=== PATIENT | male | born 1950 | race Caucasian/White ===

== ENCOUNTER 2020-04-10 10:39 | Emergency (ER) | payer OTHER, SELFPAY ==
--- NOTE | ~2020-04-10 | CT_ITS ---
EXAMINATION: CT abdomen pelvis w con DATE: 04/10/2020 12:26 INDICATION: Left-sided abdominal pain TECHNIQUE: Computed tomography (CT) of the abdomen and pelvis was performed with 100 cc Omnipaque 350 intravenous contrast. Automated exposure control and iterative reconstruction technique were employe d. Exam dose: 739.96 mGy-cm total exam DLP. COMPARISON: None. FINDINGS: Calcified right lower lobe pulmonary granulomas. There is discoid atelectasis and/or scarri ng in the lower lung zones. Cardiomegaly. No pericardial or pleural effusion. The gallbladder is present. No bile duct or pancreatic duct dilatation. There are calcified splenic granulomas. No hepatic, splenic, pancreatic, and adrenal space-occupying mass lesion. The spleen measures 12 cm vertical dimension, within upper limits of normal. Approximately 3.4 cm lower pole right renal cyst. 7 mm lower pole left renal cyst. There is a pinpoint nonobstructing mid left renal calculus. There is a 2.6 mm calculus at the left ureterovesical junction with mild left hydroureteronephrosis. Moderate prostate enlargement. Normal caliber of the abdominal aorta. No intraperitoneal or retroperitoneal or pelvic mass lesion or adenopathy or ascites. Bilateral small fat-containing inguinal hernias. Normal appendix. Diverticulosis of the colon, with greatest involvement of the sigmoid area. No CT ev idence of diverticulitis. No bowel obstruction, bowel wall thickening, pneumatosis or intraperitoneal free air. Included skeletal structures are unremarkable. IMPRESSION: 2.6 mm left ureterovesical junction calculus with mild left hydroureteronephrosis Pinpoint nonobstructing mid left renal calculus Bilateral renal cysts Cardiomegaly Diverticulosis of the colon Reviewed, dictated and finalized at [facility]. Reviewed, dictated and finalized at [facility]. IMPRESSION: 2.6 mm left ureterovesical junction calculus with mild left hydrou reteronephrosis Pinpoint nonobstructing mid left renal calculus Bilateral renal cysts Cardiomegaly Diverticulosis of the colon
[2020-04-10 10:40] VITALS: BP 176/79; PULSE 100; RESP 16; TEMP 36.4; O2SAT 98
--- NOTE | 2020-04-10 11:27 | PC.NURSE ---
Report given to SASHA Campuzano; assuming care at this time.
--- NOTE | 2020-04-10 11:28 | ED.ABDPAIN ---
HPI - Abdominal Pain General Chief Complaint: Abdominal Pain Stated Complaint: ABD PAIN XTD Time Seen by Provider: 04/10/20 11:08 Source: patient Mode of arrival: ambulatory Limitations: no limitations History of Present Illness HPI narrative: This is a 69-year-old male that presents the emergency department for left-sided abdominal pain which started this morning. Reports the pain was sharp in nature. Reports the pain has now mostly resolved. Denies fever, nausea, vomiting, diarrhea, hematochezia, dysuria or hematuria. Related Data Home Medications Medication Instructions Recorded Confirmed aspirin 325 mg tablet 325 mg PO DAILY 09/22/19 10/12/19 Allergies Allergy/AdvReac Type Severity Reaction Status Date / Time No Known Allergies Allergy Verified 04/10/20 10:53 Review of Systems Review of Systems: Narrative: CONSTITUTIONAL: Denies fever GASTROINTESTINAL: Reports abdominal pain. Denies nausea, vomiting, or diarrhea. GENITOURINARY: Denies dysuria or hematuria. All systems reviewed & are unremarkable except as noted in HPI and below PMFSH Past Medical History Medical History (Updated 04/10/20 @ 14:15 by oHlli Barnett PA-C) Atrial fibrillation by electrocardiogram Essential hypertension Social History Social History Smoking status: Never smoker Alcohol intake: never Exam Narrative: Exam Narrative: GENERAL: Well-appearing, well-nourished, and in no acute distress. HEAD: Normocephalic, atraumatic. EYES: EOMI. CHEST: Clear to auscultation. No respiratory distress. No wheezes rales or rhonchi HEART: Regular rate and rhythm. No murmur heard. Normal peripheral pulses. ABDOMEN: Soft, nondistended, normal active bowel sounds. Tender to palpation of the left side of the abdomen, without guarding EXTREMITIES: Normal range of motion. No edema. SKIN: Warm, dry, no rash. NEURO: No focal deficits. Alert and oriented x3. PSYCH: Normal mood and affect Course Consultations Consultation #1: Spoke with on-call urologist, Dr. Naidu about patient and work-up. Patient will be given pain medication and Flomax and will follow-up in clinic Date: 04/10/20 Time: 14:14 Vital Signs Vital signs: Vital Signs Temperature 97.6 F 04/10/20 10:40 Pulse Rate 100 04/10/20 10:40 Respiratory Rate 16 04/10/20 10:40 Blood Pressure 176/79 H 04/10/20 10:40 Pulse Oximetry 98 04/10/20 10:40 Temperature 97.6 F 04/10/20 10:40 Pulse Rate 88 04/10/20 12:56 Respiratory Rate 16 04/10/20 12:56 Blood Pressure 132/88 04/10/20 12:56 Pulse Oximetry 98 04/10/20 12:56 MDM - Abdominal Pain MDM Narrative Medical decision making narrative: This is a 69-year-old male that presents the emergency department for left-sided abdominal pain since this morning. He is afebrile and nontoxic-appearing. CBC is without acute findings. Metabolic panel without acute changes. UA without evidence of infection. Red blood cells are present. CT of the abdomen and pelvis shows a 2.6 mm left UVJ stone with mild left hydroureteronephrosis. Patient will be started on Flomax and given pain medication as needed for home. He is to follow-up with urology. Spoke with on-call urologist, Dr. Naidu about patient and work-up. Patient is stable and felt appropriate for further outpatient evaluation Lab Data Attestation: I reviewed the patient's lab results. Result diagrams: 04/10/20 11:29 04/10/20 11:29 Labs: Lab Results 04/10/20 04/10/20 04/10/20 Range/Units 11:29 11:29 11:32 WBC 7.5 (4.5-10.0) K/mm3 RBC 5.09 (4.6-6.20) M/mm3 Hgb 16.0 (14.0-18.0) g/dL Hct 47.2 (42.0-52.0) % MCV 92.7 (80-100) fl MCH 31.4 (26-34) pg MCHC 33.9 (32-36) g/dl RDW 13.0 (11.5-14.5) % Plt Count 195 (150-375) k/mm3 MPV 9.4 (7.4-10.4) fl Immature Gran % (Auto) 0.3 (0-0.5) % Neut % (Auto) 86.5 H (45.5-73.1)
[2020-04-10 11:40] LABS: Basophils Absolute Auto 0.1 K/mm3 (0.0-0.1); Basophils Percent Auto 0.8 % (0.2-1.2); Eosinophils Absolute Auto 0.1 K/mm3 (0-0.3); Eosinophils Percent Auto 0.9 % (0-4.4); Hematocrit 47.2 % (42.0-52.0); Immature Granulocyte Absolute 0.02 K/mm3 (0.00-0.031); Immature Granulocyte Percent A 0.3 % (0-0.5); Lymphocytes Percent Auto 6.7 % (18.3-44.2); Mean Corpuscular HGB Conc 33.9 g/dl (32-36); Mean Corpuscular Hemoglobin 31.4 pg (26-34); Mean Corpuscular Volume 92.7 fl (80-100); Mean Platelet Volume 9.4 fl (7.4-10.4); Monocytes Absolute Auto 0.4 K/mm3 (0.1-0.6); Monocytes Percent Auto 4.8 % (2.6-8.5); Neutrophils Absolute Auto 6.5 K/mm3 (1.3-6.7); Neutrophils Percent Auto 86.5 % (45.5-73.1); Platelet Count Result 195 k/mm3 (150-375); Red Blood Count 5.09 M/mm3 (4.6-6.20); White Blood Count 7.5 K/mm3 (4.5-10.0)
[2020-04-10 11:43] LABS: Add Urine Microscopic? YES; Appearance Urine Clear (Clear); Bacteria Urine Trace /hpf; Bilirubin Urine Negative (Negative); Blood Urine 3+ (Negative); Color Urine Yellow (Yellow); Glucose Urine UA Negative (Negative); Ketones Urine Negative (Negative); Leukocyte Esterase Ur Negative LEU/UL (Negative); Mucus Urine Heavy /lpf; Nitrate Urine Negative (Negative); Protein Urine 1+ mg/dL (Negative); RBC Urine >75 /hpf (0-2); Specific Grav Ur 1.023 (1.001-1.035); Squamous Epithelial Cell Urine Rare /hpf (Few); Urobilinogen Urine Negative mg/dL (<2.0); WBC Urine 0-3 /hpf
[2020-04-10 11:50] LABS: Alanine Aminotransferase 16 U/L (4-50); Albumin Level 4.4 g/dL (3.5-5.1); Alkaline Phosphatase 52 U/L (38-126); Aspartate Amino Transferase 23 U/L (17-59); Bilirubin,Total 0.7 mg/dL (0.2-1.3); Blood Urea Nitrogen 20 mg/dL (9-20); Calcium 9.5 mg/dL (8.4-10.2); Carbon Dioxide 24 mmol/L (22-30); Chloride 109 mmol/L (98-107); Estimated CRCL calculation 52 ml/min; Estimated Glomerular Filt Rate 55; Glucose 117 mg/dL (75-110); Lipase 94 U/L (23-300); Potassium 4.2 mmol/L (3.4-5.0); Sodium 142 mmol/L (137-145)
[2020-04-10 12:07] VITALS: BP 146/81; PULSE 82; RESP 16; O2SAT 98
[2020-04-10 12:56] VITALS: BP 132/88; PULSE 88; RESP 16; O2SAT 98
[2020-04-10 14:39] VITALS: BP 134/76; PULSE 78; RESP 18; O2SAT 98
== END 2020-04-10 14:40 | disposition home or self-care (01) ==
PROVIDERS: Physician Assistant; Emergency Provider Emergency Medicine; PCP Internal Medicine
DX: N13.2 Hydronephrosis with renal and ureteral calculous obstruction (principal); I48.91 Unspecified atrial fibrillation; I10 Essential (primary) hypertension; Z79.82 Long term (current) use of aspirin
CPT/HCPCS: 36415; 74177; 80053; 81001; 83690; 85025; 99284; Q9967

== ENCOUNTER → 2021-02-10 00:57 | Outpatient (CLI) | payer OTHER, SELFPAY ==
[2021-02-10 19:49] LABS: SARS-CoV-2 RNA PCR Negative
== END ==
PROVIDERS: PCP Internal Medicine; Visit Provider Internal Medicine Gastroenterology
DX: Z01.812 Encounter for preprocedural laboratory examination (principal); Z20.822 Contact with and (suspected) exposure to COVID-19
CPT/HCPCS: C9803; U0003; U0005

== ENCOUNTER 2021-02-13 02:08 | Day surgery (SDC) | payer OTHER, SELFPAY ==
[2021-01-30 13:32] VITALS: BMI 29.6
[2021-02-13 10:05] VITALS: BP 149/63; PULSE 100; RESP 20; TEMP 36.2; O2SAT 98
[2021-02-13] MEDS: LACTATED RINGERS 1,000 ML 150 ML IV CONT (10:19)
--- NOTE | 2021-02-13 10:40 | PM.HPGS ---
History of Present Illness History of Present Illness Consent: Risks, benefits, and alternatives have been discussed and questions answered. Patient agrees to proceed with procedure. Chief complaint: Hx Of Colon Polyps Narrative: Hernandez Persaud is a 70 year old male referred for colon cancer screening. He had a polyp removed about 8 years ago Review of Systems Review of Systems: All systems reviewed & are unremarkable except as noted in HPI and below PMFSH Past Medical History Medical History Atrial fibrillation by electrocardiogram Essential hypertension Family History Family History Father Family history of malignant neoplasm Patient's father is Mother Family history of malignant neoplasm Patient's mother is Sibling Family history of malignant neoplasm Patient's brother is Social History Social History Smoking status: Never smoker Alcohol intake: never Living arrangements: alone Gender identity (if verbalized by the patient): Male Spiritual care concerns: No Meds Home Medications and Allergies Home Medications Medication Instructions Recorded Confirmed Type aspirin 325 mg tablet 325 mg PO DAILY 09/22/19 01/30/21 History cholecalciferol (vitamin D3) 50 mcg PO DAILY 01/30/21 01/30/21 History [Vitamin D3] lisinopril 20 mg PO DAILY 01/30/21 01/30/21 History Allergies Allergy/AdvReac Type Severity Reaction Status Date / Time No Known Allergies Allergy Verified 02/13/21 10:04 Vital Signs Vital Signs - 24 hr 02/13/21 10:05 Temperature 36.2 C L Pulse Rate 100 Respiratory Rate 20 Blood Pressure 149/63 H Pulse Oximetry 98 Exam Resp: Auscultation: clear to auscultation bilaterally Cardio: Rate: regular rate Rhythm: regular rhythm GI: GI Palp: Yes Soft to palpation and No Tenderness to palpation present (GI) Assessment and Plan Assessment and plan (1) Colon cancer screening: Code(s): Z12.11 - Encounter for screening for malignant neoplasm of colon Status: Acute Assessment and Plan: Colonoscopy with possible biopsy or polypectomy or cautery or injection of substances.
--- NOTE | 2021-02-13 10:45 | WPDANESEPPF ---
Anes - Initial Pre Proc Eval Procedure: Operation Date: 02/13/21 11:00 Proposed Procedures p Screening Colonoscopy - Josh Mancilla MD Date/Time: 02/13/21 10:45 Surgeon: Josh Mancilla MD Pre Op Diagnosis: Hx Of Colon Polyps Patient Data Age: 70 Gender: M Height: 5 ft 9 in Weight: 90.8 kg Last Vital Signs Temp 97.2 F L 02/13/21 10:05 Pulse 100 02/13/21 10:05 Resp 20 02/13/21 10:05 BP 149/63 H 02/13/21 10:05 Pulse Ox 98 02/13/21 10:05 Allergies Allergy/AdvReac Type Severity Reaction Status Date / Time No Known Allergies Allergy Verified 02/13/21 10:04 Home Medications Medication Instructions Recorded Confirmed Type aspirin 325 mg tablet 325 mg PO DAILY 09/22/19 01/30/21 History cholecalciferol (vitamin D3) 50 mcg PO DAILY 01/30/21 01/30/21 History [Vitamin D3] lisinopril 20 mg PO DAILY 01/30/21 01/30/21 History Patient hx anesthesia problems: none Family hx anesthesia problems: none PMFSH Past Medical History Medical History Atrial fibrillation by electrocardiogram Essential hypertension Family History Family History Father Family history of malignant neoplasm Patient's father is Mother Family history of malignant neoplasm Patient's mother is Sibling Family history of malignant neoplasm Patient's brother is Social History Social History Smoking status: Never smoker Alcohol intake: never Living arrangements: alone Gender identity (if verbalized by the patient): Male Spiritual care concerns: No Anes - Eval Final PreProcedure Day of Procedure 02/13/21 10:45 Patient weight: obese Heart: irregular rhythm Lungs: clear to auscultation Airway: Mallampati scale class II Neurological: alert and oriented Last oral intake: >/= 8 hours ASA classification: III Emergent: no Anesthetic plan: proceed Anesthesia type and monitoring: general GIVS and standard monitoring Informed Consent: The patient's anesthetic plan and its attendant risks and benefits were discussed with the patient/family/POA. Questions were solicited and answers provided to the satisfaction of the patient/family/POA.
[2021-02-13 11:30] VITALS: BP 93/56; PULSE 91; RESP 20; O2SAT 98
[2021-02-13 11:40] VITALS: BP 105/59; PULSE 85; RESP 20; O2SAT 99
[2021-02-13 11:50] VITALS: BP 116/79; PULSE 79; RESP 20; O2SAT 99
== END 2021-02-13 12:03 | disposition home or self-care (01) ==
PROVIDERS: PCP Internal Medicine; Visit Provider Internal Medicine Gastroenterology
PROC: 0DJD8ZZ Inspection of Lower Intestinal Tract, Via Natural or Artificial Opening Endoscopic (ICD-10-PCS; CPT 45378; principal; 2021-02-13 11:00)
DX: Z12.11 Encounter for screening for malignant neoplasm of colon (principal); K63.5 Polyp of colon; K57.30 Diverticulosis of large intestine without perforation or abscess without bleeding; I48.91 Unspecified atrial fibrillation; I10 Essential (primary) hypertension; Z79.82 Long term (current) use of aspirin; E66.9 Obesity, unspecified; Z68.29 Body mass index [BMI] 29.0-29.9, adult
CPT/HCPCS: 45380; 88305; C9803; J2704; J7120; U0003; U0005

== ENCOUNTER 2022-05-11 14:19 | Outpatient (CLI) | payer OTHER, SELFPAY ==
--- NOTE | 2022-05-11 14:32 | ECHO_ITS ---
Patient Info Name: Hernandez Persaud Age: 72 years : 1950 Gender: Male Ht: 67 in Wt: 197 lbs BSA: 2.08 m2 HR: 114 bpm BP: 131 / 88 mmHg Heart Rhythm: Atrial Fibrillation Technical Quality: Good Exam Date: 05/11/2022 3:06 PM Exam Location: [facility] Patient Status: Outpatient Admit Date: 05/11/2022 Staff Ordering Physician: Avila Glover DO Structural Drafter: Jessa Sky RDCS Attending Provider: Avila Glover DO Referring Physician: Adalberto RIZO; Exam Type: CA echo doppler color flow Study Info Indications I51.9 - Heart disease, unspecified Complete two-dimensional, color flow and Doppler transthoracic echocardiogram is performed. Summary 1. Complete two-dimensional, color flow and Doppler transthoracic echocardiogram is performed. 2. Left ventricular chamber dimension is normal. 3. Left ventricular systolic function is normal, estimated at 60-65%. 4. The left ventricular diastolic function is normal. 5. E/e' 9 is minimally elevated. 6. Atrial fibrillation. 7. Left atrial chamber dimension is moderately enlarged. 8. There is mild aortic valve sclerosis. 9. There is mild to moderate aortic valve regurgitation. 10. There is mild mitral valve regurgitation. 11. No pulmonary hypertension, estimated pulmonary arterial systolic pressure is 30 mmHg. Left Ventricle E/e' 9 is minimally elevated. Left ventricular chamber dimension is normal. Left ventricular systolic function is normal, estimated at 60-65%. The left ventricular diastolic function is normal. Atrial fibrillation. Right Ventricle Right ventricular chamber dimension is normal. Right ventricular systolic function is normal. Left Atria Left atrial chamber dimension is moderately enlarged. Right Atria Right atrial chamber dimension is normal. Aortic Valve The aortic valve is trileaflet. There is mild aortic valve sclerosis. There is no aortic valve stenosis. There is mild to moderate aortic valve regurgitation. Pulmonic Valve There is no pulmonic regurgitation. Mitral Valve There is no mitral valve stenosis. There is mild mitral valve regurgitation. Tricuspid Valve There is no tricuspid valve regurgitation. No pulmonary hypertension, estimated pulmonary arterial systolic pressure is 30 mmHg. Pericardium/Pleural There is no pericardial effusion. Inferior Vena Cava Normal inferior vena cava with >50% collapse upon inspiration consistent with normal right atrial pressure, 5 mmHg. Aorta The aortic root size at the sinus of Valsalva is normal. Left Ventricular Outflow Tract Name Value Normal LVOT 2D LVOT Diameter 2.1 cm LVOT Doppler LVOT Peak Gradient 5 mmHg LVOT Mean Gradient 2 mmHg LVOT VTI 19 cm LVOT VTI/AV VTI Ratio 0.9 LVOT Stroke Volume 65 ml LVOT CO 15.6 l/min LVOT CI 7.5 l/min/m2 Pulmonic Valve
== END 2022-05-11 14:20 | disposition home or self-care (01) ==
PROVIDERS: PCP Internal Medicine; Visit Provider Internal Medicine Cardiovascular Disease
DX: I51.9 Heart disease, unspecified (principal); I34.0 Nonrheumatic mitral (valve) insufficiency; I35.1 Nonrheumatic aortic (valve) insufficiency
CPT/HCPCS: 93306

== ENCOUNTER 2023-12-25 17:45 | Emergency (ER) | payer OTHER, SELFPAY ==
--- NOTE | ~2023-12-25 | XR_ITS ---
EXAMINATION: XR shoulder RT min 2V DATE: 12/25/2023 18:11 INDICATION: Right shoulder pain. Fall. TECHNIQUE: 2 views of right shoulder were obtained. COMPARISON: None. FINDINGS: There is a comminuted fracture of proximal right humerus. At the surgical neck, the distal fracture fragment demonstrates impaction and 17 mm anterior displacement. There is a fracture compone nt at the greater tuberosity with approximately 4 mm displacement. There is mild osteoarthritis of gl enohumeral joint and moderate osteoarthritis of acromioclavicular joint. IMPRESSION: 1. Comminuted two-part fracture of proximal right humerus. Reviewed, dictated and finalized at location [facility]. 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
[2023-12-25 17:48] VITALS: BP 180/91; PULSE 67; RESP 20; TEMP 36.4; O2SAT 98
--- NOTE | 2023-12-25 18:41 | ED.UPPEXIN ---
HPI - Extremity Injury (Upper) General Chief Complaint: Extremity Injury, Upper Stated Complaint: FALL, R SHOULDER PAIN Time Seen by Provider: 12/25/23 18:23 Source: patient Mode of arrival: ambulatory Limitations: no limitations History of Present Illness HPI narrative: Patient is a 73-year-old male who presents to the ED with report of a fall. Patient reports he tripped and fell this evening at home and landed on his right side. Complains of pain to his right shoulder. He did not hit his head or lose consciousness. Denies any other areas of pain. Denies hip or back pain. Denies dizziness, lightheadedness, headache, nausea, vomiting. Patient has not taken anything for pain. He is not on any blood thinners. Patient lives at home alone. Typically ambulates unassisted, does have a walker he uses very occasionally. Related Data Home Medications Medication Instructions Recorded Confirmed aspirin 325 mg tablet 325 mg PO DAILY 04/10/21 10/04/23 Allergies Allergy/AdvReac Type Severity Reaction Status Date / Time warfarin AdvReac Unknown Other Verified 10/09/23 13:38 Review of Systems Review of Systems: CONSTITUTIONAL: Denies fever, chills, or sweats. CARDIOVASCULAR: Denies chest pain. RESPIRATORY: Denies dyspnea. GASTROINTESTINAL: Denies abdominal pain, nausea, vomiting. MUSCULOSKELETAL: See HPI. NEUROLOGIC: Denies headache, dizziness, numbness, or weakness. All systems reviewed & are unremarkable except as noted in HPI and below PMFSH Past Medical History Medical History Atrial fibrillation by electrocardiogram BPH w/o urinary obs/LUTS CKD (chronic kidney disease) stage 3, GFR 30-59 ml/min COVID-19 Essential hypertension Systolic dysfunction Family History Family History Father Family history of malignant neoplasm Patient's father is Mother Family history of malignant neoplasm Patient's mother is Sibling Family history of malignant neoplasm Patient's brother is Social History Social History Smoking status: Never smoker Second hand tobacco smoke exposure: Yes Alcohol intake: never Substance use: never Substance use type: does not use Living arrangements: alone Gender identity (if verbalized by the patient): Male Spiritual care concerns: No Exam Narrative: GENERAL: Elderly, frail, non-toxic, in no acute distress. HEAD: Normocephalic, atraumatic. No contusions or evidence of trauma. RESPIRATORY: Airway patent, respirations nonlabored. Clear to auscultation bilaterally, no rales, rhonchi, wheezing. CARDIOVASCULAR: Regular rate and rhythm without murmurs, rubs, or gallops. Radial pulses easily palpable. MUSCULOSKELETAL: Limited ROM of RUE d/t pain. TTP diffusely throughout R shoulder joint. Pain with any movement of RUE. Sensation intact throughout RUE. Able to perform OK and thumbs up sign. Equal furnace packer strength bilaterally. No tenderness throughout elbow. SKIN: Warm, dry, normal color. NEURO: A&O X3. Speech clear. Cranial nerves II-XII grossly intact. PSYCHIATRIC: Appropriate mood and affect. Normal interaction. Course Vital Signs Vital signs: Vital Signs Temperature 97.6 F 12/25/23 17:48 Pulse Rate 67 12/25/23 17:48 Respiratory Rate 20 12/25/23 17:48 Blood Pressure 180/91 H 12/25/23 17:48 Pulse Oximetry 98 12/25/23 17:48 Oxygen Delivery Room Air 12/25/23 17:48 Temperature 97.6 F 12/25/23 17:48 Pulse Rate 72 12/25/23 20:03 Respiratory Rate 15 12/25/23 20:03 Blood Pressure 168/94 H 12/25/23 20:03 Pulse Oximetry 97 12/25/23 20:03 Oxygen Delivery Room Air 12/25/23 17:48 MDM - Extremity Injury (Upper) MDM Narrative Medical decision making narrative: Patient presented to ED status p
[2023-12-25] MEDS: ACETAMINOPHEN 500 MG TABLET 1000 MG PO (18:52)
[2023-12-25] MEDS: traMADol HCL (*CRX) 50 MG TABLET PO (18:52)
[2023-12-25 20:03] VITALS: BP 168/94; PULSE 72; RESP 15; O2SAT 97
== END 2023-12-25 20:05 | disposition home or self-care (01) ==
PROVIDERS: Emergency Provider Physician Assistant; PCP Nurse Practitioner Family
DX: S42.201A Unspecified fracture of upper end of right humerus, initial encounter for closed fracture (principal); I48.91 Unspecified atrial fibrillation; I12.9 Hypertensive chronic kidney disease with stage 1 through stage 4 chronic kidney disease, or unspecified chronic kidney disease; N18.30 Chronic kidney disease, stage 3 unspecified; W01.0XXA Fall on same level from slipping, tripping and stumbling without subsequent striking against object, initial encounter
CPT/HCPCS: 73030; 99284; A4565; A9270

== ENCOUNTER 2024-06-23 14:55 | Emergency (ER) | payer OTHER, SELFPAY ==
--- NOTE | ~2024-06-23 | XR_ITS ---
EXAMINATION: XR chest 2V DATE: 06/23/2024 16:01 INDICATION: Atrial fibrillation bilateral lower limb swelling TECHNIQUE: PA and lateral views of the chest were obtained. COMPARISON: None FINDINGS: Mild streaky and linear bibasilar opacities most prominent in the lingula and would favor atelectasis /scarring over pneumonia. No pulmonary edema, pleural effusion or pneumothorax. The cardiomediastinal silhouette is normal. Mild to moderate thoracic spondylosis. IMPRESSION: 1. Mild streaky bibasilar opacities and favor atelectasis/scarring over less likely pneumonia. Reviewed, dictated and finalized at [facility]. IMPRESSION: 1. Mild streaky bibasilar opacities and favor atelectasis/scarring over less li meeta pneumonia.
--- NOTE | ~2024-06-23 | US_ITS ---
EXAMINATION: US venous doppler [facility] DATE: 06/23/2024 15:46 INDICATION: Atrial fibrillation presenting with lower limb pain, swelling and erythema TECHNIQUE: Grayscale ultrasound images without and with compression and Doppler ultrasound images of the bilateral lower extremity veins were obtained. COMPARISON: None. FINDINGS: The visualized portions of right common femoral vein, profunda (deep) femoral vein, femoral vein, pop liteal vein, posterior tibial veins, peroneal veins, gastrocnemius vein and greater saphenous vein ou tflow are patent. The visualized portions of left common femoral vein, profunda femoral vein, femoral vein, popliteal v ein, gastrocnemius vein and greater saphenous vein outflow are patent. The left posterior tibial and peroneal veins were unable to be visualized. IMPRESSION: 1. No deep venous thrombosis in either lower limb. The left posterior tibial and peroneal veins at t he left calf were unable to be visualized. Reviewed, dictated and finalized at location [facility]. IMPRESSION: 1. No deep venous thrombosis in either lower limb. The left posterior tibial a nd peroneal veins at the left calf were unable to be visualized.
[2024-06-23 15:11] VITALS: BP 168/74; PULSE 76; RESP 16; TEMP 36.6; O2SAT 98
--- NOTE | 2024-06-23 15:14 | ECG_ITS ---
Test Date: 2024-06-23 15:19:18 Measurements Intervals [place] Rate: 109 P: 0 WA: 0 QRS: -22 QRSD: 92 T: 118 QT: 329 QTc: 444 Interpretive Statements ATRIAL FIBRILLATION WITH RAPID VENTRICULAR RESPONSE VOLTAGE CRITERIA FOR LVH [MEETS CRITERIA IN ONE OF: R(aVL), S(V1), R(V5), R(V5/V6)+S(V1)] POSSIBLE SEPTAL MYOCARDIAL INFARCTION , OF INDETERMINATE AGE [30 ms Q WAVE IN V1/V2] MODERATE T-WAVE ABNORMALITY, CONSIDER LATERAL ISCHEMIA [-0.1+ mV T WAVE IN I/aVL/V5/V6] No previous ECG available for comparison Electronically Signed On 06-23-2024 15:21:57 CDT by Gabriel Byrne M.D.
--- NOTE | 2024-06-23 15:14 | ED.EXTPRO ---
HPI - Extremity Problem General Chief complaint: Extremity Problem,Nontraumatic <Luis Haley, [employer]IM [employer] CROWN PRESSER - Last Filed: 06/23/24 15:18> Stated complaint: BLE swelling <Luis Haley [employer] PRESSER - Last Filed: 06/23/24 15:18> Time Seen by Provider: 06/23/24 17:05 <Luis Haley [employer] PRESSER - Last Filed: 06/23/24 15:18> Focused HPI: GENERAL: Well-appearing, well-nourished, and in no acute distress. HEAD: Normocephalic, atraumatic. CHEST: Clear to auscultation. No respiratory distress. HEART: Regular rate and rhythm. NEURO: Alert and oriented x3. Patient screened in triage and initial orders placed. Additional care and disposition to be based upon diagnostic testing and treatment. 72-year-old male history of AFib and BPH presents emergency room for evaluation worsening bilateral lower extremity swelling. Patient states swelling has worsened over the past couple of days. Reports left lower leg has been weeping clear fluid. Patient states AFib is managed with aspirin. Denies any chest pain, shortness of breath, palpitations or difficulty breathing. No known history of PE/DVT <Luis Haley, [employer]OWN PRESSER - Last Filed: 06/23/24 15:18> History of Present Illness HPI Narrative: 74-year-old male with history of hypertension, CKD, AFib on aspirin, mild chronic systolic dysfunction presents to the emergency department for redness to his left leg for 3 days. Patient presents with his brother at bedside to assist with history. States the patient scrubbed his left leg due to significant dry skin to the left leg. Shortly after he began having redness and weeping to this left leg which prompted him come to the ED. patient and brother at bedside do not notice any significant lower extremity edema. Per chart review patient has been seen by PCP and Cardiology for lower extremity edema. He is on hydrochlorothiazide and it seems to be attributed to venous insufficiency. He has been advised to wear compression stockings. He is not anticoagulated due to cause of dough Axe and side effects of warfarin, therefore he is on aspirin with Ruddy Vasc score 2. He denies chest pain or shortness of breath, fever, nausea vomiting abdominal pain today. His mercury purifier is Dr. Glover, PCP is Maddie Toure. <Kathy Hayes PA-C - Last Filed: 06/24/24 02:02> Related Data Home medications: Home Medications Medication Instructions Recorded Confirmed aspirin 325 mg tablet 325 mg PO DAILY 04/10/21 04/14/24 <Luis Haley APRN - Last Filed: 06/23/24 15:18> Allergies/Adverse reactions: Allergies Allergy/AdvReac Type Severity Reaction Status Date / Time warfarin AdvReac Unknown Other Verified 04/15/24 09:22 <Luis Haley APRN - Last Filed: 06/23/24 15:18> Review of Systems Review of Systems: All systems reviewed & are unremarkable except as noted in HPI and below <Kathy Hayes PA-C - Last Filed: 06/24/24 02:02> [facility] Past Medical History Medical History: Medical History Atrial fibrillation by electrocardiogram BPH w/o urinary obs/LUTS CKD (chronic kidney disease) stage 3, GFR 30-59 ml/min COVID-19 Essential hypertension Systolic dysfunction <Luis Haley APRN - Last Filed: 06/23/24 15:18> Family History Family History: Family History Father Family history of malignant neoplasm Patient's father is Mother Family history of malignant neoplasm Patient's mother is Sibling Family history of malignant neoplasm Patient's brother is <Luis Haley APRN - Last Filed: 06/23/24 15:18> Social History Social History: Social History Smoking status: Never smoker Second hand tobacco smoke exposure: Yes Alcohol intake: never Substance use: never Substance
[2024-06-23 15:31] LABS: Basophils Absolute Auto 0.1 K/mm3 (0.0-0.1); Basophils Percent Auto 1.2 % (0.2-1.2); Eosinophils Absolute Auto 0.2 K/mm3 (0-0.3); Eosinophils Percent Auto 3.2 % (0-4.4); Hematocrit 45.8 % (42.0-52.0); Hemoglobin 14.9 g/dL (14.0-18.0); Immature Granulocyte Absolute 0.01 K/mm3 (0.00-0.031); Immature Granulocyte Percent A 0.2 % (0-0.5); Lymphocytes Absolute Auto 1.18 K/mm3 (0.9-3.2); Lymphocytes Percent Auto 23.7 % (18.3-44.2); Mean Corpuscular HGB Conc 32.5 g/dl (32-36); Mean Corpuscular Volume 98.3 fl (80-100); Mean Platelet Volume 10.3 fl (7.4-10.4); Monocytes Absolute Auto 0.5 K/mm3 (0.1-0.6); Monocytes Percent Auto 9.5 % (2.6-8.5); Neutrophils Absolute Auto 3.1 K/mm3 (1.3-6.7); Neutrophils Percent Auto 62.2 % (45.5-73.1); Platelet Count Result 172 k/mm3 (150-375); Red Blood Count 4.66 M/mm3 (4.6-6.20); Red Cell Distribution Width 13.6 % (11.5-14.5)
[2024-06-23 15:42] LABS: Prothrombin Time 13.9 Seconds (11.1-14.7)
[2024-06-23 15:43] LABS: Partial Thromboplastin Time 27.4 Seconds (22.3-36.8)
[2024-06-23 15:44] LABS: Lactic Acid Reflex 1.2 mmol/L (0.7-2.0)
[2024-06-23 15:46] LABS: Alanine Aminotransferase 13 U/L (6-50); Albumin Level 4.4 g/dL (3.5-5.1); Alkaline Phosphatase 62 U/L (38-126); Anion Gap 9 mmol/L (4-12); Aspartate Amino Transferase 26 U/L (17-59); Bilirubin,Total 0.6 mg/dL (0.2-1.3); Blood Urea Nitrogen 19 mg/dL (9-20); Calcium 9.3 mg/dL (8.4-10.2); Carbon Dioxide 27 mmol/L (22-30); Chloride 107 mmol/L (98-107); Estimated Glomerular Filt Rate > 60; Glucose 111 mg/dL (65-110); Potassium 3.9 mmol/L (3.4-5.0); Sodium 143 mmol/L (137-145)
[2024-06-23 15:58] LABS: NT Pro B Type Natriuretic Pept 3430 pg/mL (19.9-100); Troponin I < 0.012 ng/mL (0.000-0.034)
[2024-06-23 16:38] VITALS: BP 146/88; PULSE 103; RESP 18; O2SAT 99
[2024-06-23 17:14] VITALS: PULSE 115; RESP 20; O2SAT 99
[2024-06-23 17:30] VITALS: PULSE 95; RESP 20; O2SAT 98
[2024-06-23 17:56] VITALS: PULSE 104; RESP 22; O2SAT 99
[2024-06-23 18:08] VITALS: BP 160/98; PULSE 98; RESP 16; O2SAT 99
[2024-06-23] MEDS: CEPHALEXIN 500 MG CAPSULE PO (18:37)
== END 2024-06-23 18:47 | disposition home or self-care (01) ==
PROVIDERS: Nurse Practitioner Family; Emergency Provider Physician Assistant; PCP Nurse Practitioner Family
DX: L03.116 Cellulitis of left lower limb (principal); R79.89 Other specified abnormal findings of blood chemistry; I12.9 Hypertensive chronic kidney disease with stage 1 through stage 4 chronic kidney disease, or unspecified chronic kidney disease; N18.30 Chronic kidney disease, stage 3 unspecified; I48.91 Unspecified atrial fibrillation; I11.9 Hypertensive heart disease without heart failure; N40.0 Benign prostatic hyperplasia without lower urinary tract symptoms; Z86.16 Personal history of COVID-19; Z79.82 Long term (current) use of aspirin; Z77.22 Contact with and (suspected) exposure to environmental tobacco smoke (acute) (chronic); R94.31 Abnormal electrocardiogram [ECG] [EKG]
CPT/HCPCS: 36415; 71046; 80053; 83605; 83880; 84484; 85025; 85610; 85730; 93005; 93970; 99284; A9270

== ENCOUNTER 2024-11-16 13:17 | Outpatient (CLI) | payer OTHER, SELFPAY ==
--- NOTE | 2024-11-16 13:27 | ECHO_ITS ---
Patient Info Name: Hernandez Persaud Age: 74 years : 1950 Gender: Male Ht: 65 in Wt: 175 lbs BSA: 1.93 m2 HR: 88 bpm BP: 163 / 78 mmHg Heart Rhythm: Atrial Fibrillation Technical Quality: Fair Exam Date: 11/16/2024 1:30 PM Exam Location: Echo Lab Patient Status: Outpatient Admit Date: 11/16/2024 Staff Ordering Physician: Avila Glover DO Transportation Mechanic: Cassie Bower RDCS Attending Provider: Avila Glover DO Referring Physician: Adalberto RIZO; Exam Type: CA echo doppler color flow Study Info Indications - Localized edema Complete two-dimensional, color flow and Doppler transthoracic echocardiogram is performed. Summary 1. Complete two-dimensional, color flow and Doppler transthoracic echocardiogram is performed. 2. Left ventricular chamber dimension is moderately enlarged. 3. Left ventricular systolic function is moderately globally reduced, estimated at 35-40%. 4. The left ventricular diastolic function is abnormal. 5. E/e' 18 is elevated. 6. Atrial fibrillation. 7. Left atrial chamber dimension is severely enlarged. 8. Right atrial chamber dimension is mildly enlarged. 9. There is mild aortic valve sclerosis. 10. There is moderate aortic valve regurgitation. 11. There is mild tricuspid valve regurgitation. 12. Mild pulmonary hypertension, estimated pulmonary arterial systolic pressure is 47 mmHg. Left Ventricle E/e' 18 is elevated. Atrial fibrillation. Left ventricular systolic function is moderately globally reduced, estimated at 35-40%. Left ventricular chamber dimension is moderately enlarged. The left ventricular diastolic function is abnormal. Right Ventricle Right ventricular systolic function is normal and with normal TAPSE 1.8 cm. Right ventricular chamber dimension is normal. Left Atria Left atrial chamber dimension is severely enlarged. Right Atria Right atrial chamber dimension is mildly enlarged. Aortic Valve The aortic valve is trileaflet. There is mild aortic valve sclerosis. There is no aortic valve stenosis. There is moderate aortic valve regurgitation. Pulmonic Valve There is no pulmonic regurgitation. Mitral Valve There is no mitral valve stenosis. There is no mitral valve regurgitation. Tricuspid Valve There is mild tricuspid valve regurgitation. Mild pulmonary hypertension, estimated pulmonary arterial systolic pressure is 47 mmHg. Pericardium/Pleural There is no pericardial effusion. Inferior Vena Cava Normal inferior vena cava with >50% collapse upon inspiration consistent with normal right atrial pressure, 5 mmHg. Aorta The aortic root size at the sinus of Valsalva is normal. Left Ventricular Outflow Tract Name Value Normal LVOT 2D LVOT Diameter 2.1 cm LVOT Doppler LVOT Peak Gradient 1 mmHg LVOT Mean Gradient 1 mmHg LVOT VTI 11 cm LVOT VTI/AV VTI Ratio 0.5 LVOT Stroke Volume 38 ml LVOT CO 3.6 l/min LVOT CI 1.9 l/min/m2 Pulmonic Valve Name Value Normal RVOT Doppler RVOT Peak Gradient 1 mmHg PV Doppler PV Peak Gradient 4 mmHg Mitral Valve Name Value Normal MV Doppler MV Peak Gradient 6 mmHg MV Mean Gradient 2 mmHg MV Decel [place] 176 cm/s2 MV PHT 110 ms MV Area (PHT) 2.0 cm2 4.0-5.0 MV Area (Cont Eq VTI) 0.9 cm2 MV Regurgitation Doppler MR Peak Gradient 94 mmHg MV Diastolic Function MV E Peak Velocity 67 cm/s MV A Peak Velocity 1 cm/s MV E/A 60.2 MV Decel Time 379 ms MV Annular TDI MV E/e' (Septal) 15.8 <=8.0 MV E/e' (Lateral) 21.1 <=8.0 MV E/e' (Average) 18.4 Tricuspid Valve Name Value Normal TV Regurgitation Doppler TR Peak Velocity 326 cm/s TR Peak Gradient 42 mmHg Estimated PAP/RSVP RA Pressure 5 mmHg <=5 PA Systolic Pressure 47 mmHg <36 RV Systolic Pressure 47 mmHg <36 Aorta Name Value Normal Ascending Aorta Ao Root Diameter (MM) 3.7 cm Ao Root Diam Index (MM) 1.9 cm/m2 Aortic Valve Name Value Normal AV Doppler AV Peak Velocity 104 cm/s AV Peak Gradient 4 mmHg AV Mean Gradient 2 mmHg AV VTI 19 cm AV Area (Cont Eq VTI) 2.0 cm2 >=3.0 AV Area (Cont Eq Adryan) 2.1 cm2 AV Regurgitation 2D LVOT Area 3.6 cm2 AV Regurgitation Doppler AR Decel Time 2,205 ms AR Decel [place] 186 cm/s2 AR PHT 639 ms Ventricles Name Value Normal LV Dimensions 2D/MM IVS Diastolic Thickness (2D) 0.9 cm 0.6-1.0 LVID Diastole (2D) 5.7 cm 4.2-5.8 LVIW Diastolic Thickness (2D) 0.9 cm 0.6-1.0 LVID Systole (2D) 5.1 cm 2.5-4.0 LVOT Diameter 2.1 cm LV Mass (2D Cubed) 200.45 g 88.00-224.00 LV Mass Index (2D Cubed) 104 g/m2 49-115 Relative Wall Thickness (2D) 0.33 LV Fractional Shortening/Ejection Fraction 2D/MM LV Fractional Shortening (2D) 11 % 25-43 LV EF (2D Teicholz) 23 % 52-72 LV Diastolic Volume (4C MOD) 114 ml LV EF (4C MOD) 44 % LV Diastolic Volume (2C MOD) 101 ml LV EF (2C MOD) 32 % LV Diastolic Volume (BP MOD) 108 ml 62-150 LV Diastolic Volume Index (BP MOD) 56 ml/m2 34-74 LV Systolic Volume (BP MOD) 71 ml 21-61 LV Systolic Volume Index (BP MOD) 37 ml/m2 11-31 LV EF (BP MOD) 34 % 52-72 LV Diastolic Length (4C) 9.2 cm LV Systolic Length (4C) 7.1 cm LV Stroke Volume (4C MOD) 50 ml Atria Name Value Normal LA Dimensions LA Dimension (MM) 6.6 cm 3.0-4.1 LA Volume (4C A-L) 105 ml LA Volume (BP A-L) 110 ml RA Dimensions RA Area (4C) 20.6 cm2 <=18.0 Report Signatures
== END 2024-11-16 13:18 | disposition home or self-care (01) ==
PROVIDERS: PCP Nurse Practitioner Family; Visit Provider Internal Medicine Cardiovascular Disease
DX: R60.0 Localized edema (principal); I08.3 Combined rheumatic disorders of mitral, aortic and tricuspid valves; I27.20 Pulmonary hypertension, unspecified
CPT/HCPCS: 93306

== ENCOUNTER 2024-12-30 09:30 | Outpatient (CLI) | payer OTHER, SELFPAY ==
--- NOTE | ~2024-12-30 | NM_ITS ---
EXAMINATION: NM kelly stress w perfusion DATE: 12/30/2024 12:01 INDICATION: Heart disease TECHNIQUE: Rest images were obtained following intravenous administration of 11 mCi Tc99m tetrofosmin (Myoview). The patient was infused intravenously with Lexiscan (Regadenoson). Then, 34.9 mCi Tc99m t etrofosmin (Myoview) was administered intravenously, and stress images were obtained. Data was recons tructed into short axis and horizontal and vertical long axis SPECT images. Gated SPECT images were a lso obtained. COMPARISON: None. FINDINGS: There is no definite reversible or fixed perfusion abnormality to suggest ischemia or infar ction. There is normal left ventricular chamber size. There is global hypokinesis with mildly decrea sed left ventricular ejection fraction measuring 37%. IMPRESSION: 1. Normal myocardial perfusion at rest and during stress. 2. Global hypokinesis with mildly decreased left ventricular ejection fraction measuring 37%. Reviewed, dictated and finalized at location B. [facility]
--- NOTE | 2024-12-30 10:22 | EST_ITS ---
Patient Info Name: Hernandez Persaud Age: 74 years : 1950 Gender: Male Ht: 60 in Wt: 175 lbs BSA: 1.87 m2 HR: 78 bpm BP: 143 / 70 mmHg Exam Date: 12/30/2024 10:59 AM Exam Location: Echo Lab Patient Status: Outpatient Admit Date: 12/30/2024 Staff Ordering Physician: Avila Glover DO Attending Provider: Avila Glover DO Exercise Technologist: Cassie Bower RDCS Exercise Physician: Avila Glover DO Exam Type: CA stress kelly w NM Study Info A regadenoson stress test was performed. Summary 1. 1. Negative lexiscan stress test for ischemic ST changes by ECG criteria. 2. 2. Baseline hypertension. 3. 3. Nuclear scan to follow and will be reported separately. Please correlate with it. 4. 4. Patient informed of the above results. Protocol: Lexiscan Stress ECG Details Stage: REST Duration (min): 1 min : 16 sec HR (bpm): 73 SBP (mmHg): 143 DBP (mmHg): 70 Stage: REST Duration (min): 6 min : 27 sec HR (bpm): 78 SBP (mmHg): 143 DBP (mmHg): 70 Stage: STAGE 1 Duration (min): 0 min : 59 sec HR (bpm): 89 SBP (mmHg): 149 DBP (mmHg): 74 Stage: RECOVERY Duration (min): 1 min : 0 sec HR (bpm): 95 SBP (mmHg): 149 DBP (mmHg): 74 Stage: RECOVERY Duration (min): 2 min : 0 sec HR (bpm): 78 SBP (mmHg): 149 DBP (mmHg): 74 Stage: RECOVERY Duration (min): 3 min : 0 sec HR (bpm): 75 SBP (mmHg): 134 DBP (mmHg): 75 Stage: RECOVERY Duration (min): 3 min : 17 sec HR (bpm): 81 SBP (mmHg): 134 DBP (mmHg): 75 Rest HR: 78 bpm Peak HR: 98 bpm Rest Sys BP: 143 mmHg Peak Sys BP: 149 mmHg Max Pred HR: 148 bpm % Max Pred HR: 66 % Target HR: 126 bpm Max RPP: 14,602 bpm*mmHg Termination Reason: Completed protocol Cardiac Symptoms: Shortness of breath Total Time: 1 min : 0 sec Rest Alcaraz BP: 70 mmHg Peak [place] BP: 74 mmHg Total Dose: 0.4 mg Resting ECG Atrial fibrillation. Stress ECG No ST change. Arrhythmias No other arrhythmias. Report Signatures
--- OUTSIDE RECORDS SUMMARY | 2024-12-30 10:28 | XMS_ITS | Referral Summary ---
Author Organization [facility] Address [address] [place] [address] Care Team Providers Care Bearing Grinder Name Role Phone Reymundo Porter DO Primary Care Provider [phone] Source Comments [facility],non-owned Affiliates and Associated Physician Practices is amultiple site organization consisting of ambulatory clinics and hospital sitesin [place], [place], [place] and [place]. This disclosure is being madepursuant to the Care Everywhere program and may not contain all information available regarding this patient. Last updated 18.[facility] Encounters Date Type Department Care Team Description 11/06/2024 11:44 AM OBSTETRICIAN/GYNECOLOGIST - 11/07/2024 2:10 PM [facility] Hospital Encounter [facility] [address] ACUTE [address] [place] [address] Bc Moss MD Burkhartsmeier, Cole J, MD Scott, Jordan K, MD Linares, MD Gerard Neurology Discharge Disposition: Home or Self Care 11/06/2024 Travel from Last 3 Months Allergies No known active allergies Medications * Be aware that medications may not be up to date on this document. Alwaysverify current medications with the patient. Medication Sig Dispensed Refills Start Date End Date Status apixaban (Eliquis) 5 MG tablet Take 1 (one) tablet by mouth 2 times daily for 90 days 60 tablet 2 11/07/2024 02/05/2025 Active atorvastatin (Lipitor) 40 MG tablet Take 1 (one) tablet by mouth at bedtime for 90 days 30 tablet 2 11/07/2024 02/05/2025 Active Active Problems Problem Noted Date Diagnosed Date Dizzy 11/06/2024 Left arm weakness 11/06/2024 Social History Tobacco Use Types Packs/Day Years Used Date Smoking Tobacco: Never Smokeless Tobacco: Never Tobacco Cessation:Counseling Given: Not Answered Alcohol Use Standard Drinks/Week Comments Never 0 (1 standard drink = 0.6 oz pur e alcohol) AUDIT-C Answer Date Recorded Q1: How often do you have a drink containing alcohol? Never 11/06/2024 Q2: How many drinks containi ng alcohol do you have on a typical day when you are drinking? Patient does not drink Q3: How often do you have si x or more drinks on one occasion? Never 11/06/2024 Overall Financial Resource Strain (CARDIA) Answe r Date Recorded How hard is it for you to pa y for the very basics like food, housing, medical care, and heating? Not hard at all 11/06/2024 PHQ-2 Answer Date Recorded Patient Health Questionnaire-2 Score 0 11/06/2024 [facility] - Occupational Stress Questionnaire Answer Date Recorded Do you feel stress - tense, restless, nervous, or anxious, or unable to sleep at night because your mind is troubled all the time - these days? Not at all 11/06/2024 Hunger Vital Sign Answer Date Recorded Within the past 12 months, y ou worried that your food would run out before you got the money to buy more. Never true 11/06/19 25 Within the past 12 months, t he food you bought just didn't last and you didn't have money to get more. Never true 11/06/2024 PRAPARE - Transportation Answer Date Re corded In the past 12 months, has l ack of transportation kept you from medical appointments or from getting medications? No 01/2025 In the past 12 months, has l ack of transportation kept you from meetings, work, or from getting things needed for daily living? No 11/06/2024 Housing Stability Vital Sign Answer Jonathan e Recorded In the last 12 months, was t here a time when you were not able to pay the mortgage or rent on time? No 11/06/2024 In the past 12 months, how m any times have you moved where you were living? 0 11/06/2024 At any time in the past 12 m [facility], were you homeless or living in a half-way (including now)? No 11/06/2024 Sex and Gender Information Value Date Recorded Sex Assigned at Not on file Gender Identity Not on file Sexual Orientation Not on file Last Filed Vital Signs Vital Sign Reading Time Taken Comments Blood Pressure 142/73 11/07/2024 11:23 AM OBSTETRICIAN/GYNECOLOGIST Pulse 80 11/07/2024 11:23 AM OBSTETRICIAN/GYNECOLOGIST Temperature 36.3 C (97.3 F) 11/07/2024 11:23 AM OBSTETRICIAN/GYNECOLOGIST Respiratory Rate 18 11/07/2024 11:23 AM OBSTETRICIAN/GYNECOLOGIST Oxygen Saturation 99% 11/07/2024 11:23 AM OBSTETRICIAN/GYNECOLOGIST Inhaled Oxygen Concentration - - Weight 79.7 kg (175 lb 9.6 oz) 11/06/2024 7:34 P M OBSTETRICIAN/GYNECOLOGIST Height 165.1 cm (5' 5 ) 11/06/2024 7:34 PM OBSTETRICIAN/GYNECOLOGIST Body Mass Index 29.22 11/06/2024 7:34 PM OBSTETRICIAN/GYNECOLOGIST Functional Status Functional Status Response Date of Assess ment Is person deaf or have serious hearing difficult y? No 11/06/2024 Is person blind or have serious difficulty seein g? No 11/06/2024 Does person have serious dif ficulty walking/climbing stairs? Yes 11/06/2024 Does person have difficulty dressing/bathing? No 11/06/2024 Does person have difficulty doing errands alone? Yes 11/06/2024 Cognitive Status Response Date of Assessm ent Does person have difficulty concentrating/remembering/making decisions? No 11/06/2024 Plan of Treatment Not on file Procedures Procedure Name Priority Date/Time Associated Diagnosis Comments CARDIAC EKG ORDER 11/13/2024 11: 55 AM OBSTETRICIAN/GYNECOLOGIST GLUCOSE - POINT OF CARE Routine 11/07/2024 11:20 AM OBSTETRICIAN/GYNECOLOGIST GLUCOSE - POINT OF CARE Routine 11/07/2024 7:45 AM OBSTETRICIAN/GYNECOLOGIST LIPID PROFILE Routine 11/07/2024 3:25 AM OBSTETRICIAN/GYNECOLOGIST CBC W/O DIFFERENTIAL Routine 11/07/2024 3:25 AM OBSTETRICIAN/GYNECOLOGIST BASIC METABOLIC PANEL (CALCIUM TOTAL) Routine 11/07/2024 3:25 AM OBSTETRICIAN/GYNECOLOGIST GLUCOSE - POINT OF CARE Routine 11/06/2024 8:30 PM OBSTETRICIAN/GYNECOLOGIST TROPONIN-I HIGH SENSITIVE REFLEX 1HOUR Timed 11/06/2024 6:23 PM OBSTETRICIAN/GYNECOLOGIST HEMOGLOBIN A1C Add on 11/06/2024 6:23 PM OBSTETRICIAN/GYNECOLOGIST MRI BRAIN WO CONTRAST STAT 11/06/2024 5:29 PM OBSTETRICIAN/GYNECOLOGIST Left arm weakness TROPONIN-I HIGH SENSITIVE BASELINE + 1HR STAT 11/06/2024 4:41 PM OBSTETRICIAN/GYNECOLOGIST OT EVAL AND TREAT Routine 11/06/2024 4:3 2 PM OBSTETRICIAN/GYNECOLOGIST LACTIC ACID BLOOD STAT 11/06/2024 3:2 5 PM OBSTETRICIAN/GYNECOLOGIST CBC W AUTO DIFFERENTIAL STAT 11/06/2024 3:25 PM OBSTETRICIAN/GYNECOLOGIST B-TYPE NATRIURETIC PEPTIDE STAT 11/06/2024 3:25 PM OBSTETRICIAN/GYNECOLOGIST EKG 12-LEAD Routine 11/06/2024 2:50 PM OBSTETRICIAN/GYNECOLOGIST Dizzy COMPREHENSIVE METABOLIC PANEL STAT 11/06/2024 2:43 PM OBSTETRICIAN/GYNECOLOGIST URINE DRUG SCREEN IMMUNOASSAY STAT 11/06/2024 2:43 PM OBSTETRICIAN/GYNECOLOGIST TROPONIN-I HIGH SENSITIVE STAT 11/06/2024 2:43 PM OBSTETRICIAN/GYNECOLOGIST CT ANGIO BRAIN AND NECK STAT 11/06/2024 12:07 PM OBSTETRICIAN/GYNECOLOGIST Dizzy CT BRAIN STROKE STAT 11/06/2024 12:07 PM OBSTETRICIAN/GYNECOLOGIST Dizzy INR WHOLE BLOOD - POINT OF CARE (IP) STROKE Routine 11/06/2024 11:55 AM OBSTETRICIAN/GYNECOLOGIST CREATININE - POCT INTERFACED Routine 11/06/2024 11:48 AM OBSTETRICIAN/GYNECOLOGIST GLUCOSE - POINT OF CARE Routine 11/06/2024 11:46 AM OBSTETRICIAN/GYNECOLOGIST from Last 3 Months Results * CARDIAC EKG ORDER (11/13/2024 11:55 AM OBSTETRICIAN/GYNECOLOGIST) Narrative 11/13/2024 11:55 AM OBSTETRICIAN/GYNECOLOGIST Ordered by an unspecified provider. Scanned Document CARDIAC SERVICES ORD ERABLES * (ABNORMAL) GLUCOSE - POINT OF CARE (11/07/2024 11:20 AM OBSTETRICIAN/GYNECOLOGIST) Only the most recent of4 resultswithin the time period is included. Pathologist [facility] Glucose WB/POC 129(H) 70 - 99 mg/dL 11/07/2024 11:50 AM [facility] Specimen Type Cap Fingerstick 2024 11:50 AM [facility] Blood BLOOD SPECIMEN / Unknown 11/07/2024 11:20 AM OBSTETRICIAN/GYNECOLOGIST 11/07/2024 11:50 AM OBSTETRICIAN/GYNECOLOGIST Gerard Singletary MD LAB - POINT OF CARE ORDERABLES [facility] [address] [place] [phone], [facility] [phone] * CBC W/O DIFFERENTIAL (11/07/2024 3:25 AM OBSTETRICIAN/GYNECOLOGIST) [facility] WBC 8.3 4.0 - 10.7 x10E9/L 11/07/2024 5:00 AM [facility] RBC Count 4.81 4.30 - 5.80 x10E12/L 11/07/2024 5:00 AM [facility] Hemoglobin 15.0 13.3 - 17.5 g/dL 11/07/2024 5:00 AM [facility] Hematocrit 45.6 38.7 - 51.1 % 11/07/2024 5:00 AM [facility] MCV 94.8 80.0 - 98.0 fL 11/07/2024 5:00 AM [facility] MCH 31.2 26.7 - 33.6 pg 11/07/2024 5:00 AM [facility] MCHC 32.9 31.7 - 36.3 g/dL 11/07/2024 5:00 AM [facility] RDW-CV 13.6 11.3 - 14.8 % 11/07/2024 5:00 AM [facility] Platelet Count 161 150 - 420 x10E9/L 11/07/2024 5:00 AM [facility] MPV 10.6 7.8 - 11.4 fL 11/07/2024 5:00 AM [facility] Blood BLOOD SPECIMEN / Unknown Lab Venipuncture / Unknown 11/07/2024 3:25 AM [facility] 11/07/2024 4:53 AM OBSTETRICIAN/GYNECOLOGIST Carlo Thornton MD LAB - HEMATOLOGY ORD ERABLES [facility] [address] [place] [address], [facility] [phone] * (ABNORMAL) BASIC METABOLIC PANEL (CALCIUM TOTAL) (11/07/2024 3:25 AM [facility]) BUN 18 7 - 26 mg/dL 11/07/2024 5:39 AM [facility] Creatinine 1.11 0.71 - 1.16 mg/dL 11/07/2024 5:39 AM [facility] Sodium 140 136 - 145 mmol/L 11/07/2024 5:39 AM [facility] Potassium 4.0 3.5 - 4.5 mmol/L 11/07/2024 5:39 AM [facility] Chloride 108(H) 98 - 107 mmol/L 11/07/2024 5:39 AM [facility] CO2 23 22 - 29 mmol/L 11/07/2024 5:39 AM [facility] Glucose 75 70 - 99 mg/dL 11/07/2024 5:39 AM [facility] Calcium 8.5 8.4 - 10.2 mg/dL 11/07/2024 5:39 AM [facility] Anion Gap 9 6 - 16 11/07/2024 5:39 AM [facility] BUN/Creatinine Ratio 16 7 - 23 11/07/2024 5:39 AM [facility] Osmolality Calculated 291 275 - 295 mOsm/kg 11/07/2024 5:39 AM [facility] eGFR by CKD-EPI 71(L) >=90 mL/min/1.7 3 m2 11/07/2024 5:39 AM [facility] Blood BLOOD SPECIMEN / Unknown Lab Venipuncture / Unknown 11/07/2024 3:25 AM OBSTETRICIAN/GYNECOLOGIST 11/07/2024 4:52 AM OBSTETRICIAN/GYNECOLOGIST Carlo Thornton MD LAB - CHEMISTRY ARETHA GODOY [address] [address], [place] [phone] * (ABNORMAL) LIPID PROFILE (11/07/2024 3:25 AM OBSTETRICIAN/GYNECOLOGIST) Cholesterol Total 110 <200 mg/dL 11/07/2024 5:39 AM [facility] HDL 34(L) >40 mg/dL 11/07/2024 5:39 AM [facility] Comment: ATP III Classification of HDL Cholesterol: <40 mg/dL: Considered a major risk factor. >60 mg/dL: Considered a negative risk factor. LDL Calculated 66 <100 mg/dL 11/07/2024 5:39 AM [facility] Comment: ATP III Classification of LDL Cholesterol: <100 mg/dL: Optimal 100 - 129 mg/dL: Near Optimal/Above Optimal 130 - 159 mg/dL: Borderline High 160 - 189 mg/dL: High >190 mg/dL: Very High Triglycerides 49 <150 mg/dL 11/07/2024 5:39 AM [facility] Comment: ATP III Classification of Triglycerides: <150 mg/dL: Normal 150 - 199 mg/dL: Borderline High 200 - 400 mg/dL: High >500 mg/dL: Very High Blood BLOOD SPECIMEN / Unknown Lab Venipuncture / Unknown 11/07/2024 3:25 AM OBSTETRICIAN/GYNECOLOGIST 11/07/2024 4:52 AM OBSTETRICIAN/GYNECOLOGIST Carlo Thornton MD LAB - CHEMISTRY ARETHA GODOY [address] [address], [place] [phone] * (ABNORMAL) TROPONIN-I HIGH SENSITIVE REFLEX 1HOUR (11/06/2024 6:23 PM OBSTETRICIAN/GYNECOLOGIST) Troponin I High Sensitive 57(H) <=35 ng/L 11/06/2024 7:35 PM [facility] Delta Troponin I HS 11/06/2024 7:35 PM [facility] Comment:Delta value intentio karrie not calculated. Baseline to 1 hour specimen collection interval exceeded. Blood BLOOD SPECIMEN / Unknown Lab Venipuncture / Unknown 11/06/2024 6:23 PM OBSTETRICIAN/GYNECOLOGIST 11/06/2024 7:01 PM OBSTETRICIAN/GYNECOLOGIST Carlo Thornton MD LAB - CHEMISTRY ARETHA GODOY [facility] [address] [place] [address], [facility] [phone] * HEMOGLOBIN A1C (11/06/2024 6:23 PM OBSTETRICIAN/GYNECOLOGIST) Pathologist [facility] Hemoglobin A1c 5.1 <=5.6 % 11/07/2024 7:30 AM [facility] Estimated Average Glucose 100 mg/dL 11/07/2024 7:30 AM [facility] Comment: HbA1c Interpretation: Normal : < 5.7% Pre-diabetes: 5.7-6.4% Diabetes: Equal to or greater than 6.5% Test results diagnostic of diabetes should be repeated for confirmation. Treatment target values recommended by ADA and other clinical organizations should be used to evaluate metabolic control in patients. Reference: [place] [employer], Standards of Care in Diabetes -2020 In patients 70 years and older consider HbA1c target range of 7.0-7.5% (Reference: Meño Piedra et al. JAMDA. 2012) The Sebia assay for the measurement of HbA1c is a National Glycohemoglobin Standardization Program (NGSP) certified method. Blood BLOOD SPECIMEN / Unknown Lab Venipuncture / Unknown 11/06/2024 6:23 PM OBSTETRICIAN/GYNECOLOGIST 11/06/2024 6:56 PM OBSTETRICIAN/GYNECOLOGIST Carlo Thornton MD LAB - CHEMISTRY ORDE RABLES [facility] [address] [place] [address], [facility] [phone] * MRI BRAIN WO CONTRAST (11/06/2024 5:29 PM OBSTETRICIAN/GYNECOLOGIST) Anatomical Region Laterality Modality Head Magnetic Resonan ce 11/07/2024 10:5 0 AM OBSTETRICIAN/GYNECOLOGIST Impressions 11/07/2024 10:58 AM OBSTETRICIAN/GYNECOLOGIST IMPRESSION: 1. Small foci of acute infarcts in the left cerebellar hemisphere as well as trace similar findings in the left medial occipital lobe. Additional small questionable focus of hyperintensity on the DWI sequence without definitive ADC correlate is noted in the left susan as well as the central midbrain is indeterminate for an infarct (series 2 image 31 and 32). 2. . Mild periventricular and subcortical white matter FLAIR hyperintensities are nonspecific, but can be seen in the setting of chronic small vessel ischemic disease. A small chronic infarct in the right frontal lobe. A small chronic lacunar infarct in the right thalamus. Findings discussed with Dr. Ivory by Dr. Ruddy Villalobos at 11/07/2024 1:30 AM with read back comprehension and verification. > Interpreting Provider: Carmelina Marcial MD on 11/07/2024 10:58 AM Narrative 11/07/2024 10:58 AM OBSTETRICIAN/GYNECOLOGIST PROCEDURE: MRI BRAIN WO CONTRAST, DATE/TIME OF EXAM: 11/06/2024 5:29 PM, LOCATION [facility] INDICATION: R29.898: Left arm weakness ADDITIONAL CLINICAL INFORMATION: Ordering Provider Reason For Exam: cva Technologist Note: Additional: TECHNIQUE: MRI of the brain was performed without intravenous contrast according to standard protocol. CONTRAST: COMPARISON: 11/06/2024. FINDINGS: Restricted diffusion with associated mild T2/FLAIR hyperintensity in the left cerebellar hemisphere as well as trace similar findings in the left medial occipital lobe concerning for an acute infarct (series 2 image 30 and 35). Additional small questionable focus of hyperintensity on the DWI sequence without definitive ADC correlate is noted in the left susan as well as the central midbrain is indeterminate for an infarct (series 2 image 31 and 32). No evidence of acute or chronic hemorrhage is identified. There is mild cerebral volume loss with associated ex vacuo ventricular dilatation. No mass effect or midline shift is seen. Mild periventricular and subcortical white matter FLAIR hyperintensities are nonspecific, but can be seen in the setting of chronic small vessel ischemic disease. A small chronic lacunar infarct in the right thalamus. A small chronic infarct in the right frontal lobe. Other than a chelsie-cisterna magna, the corpus callosum and sella appear normal. The posterior fossa, brainstem, and craniocervical junction appear normal. Other than mild paranasal sinus disease, the visualized portions of the orbits, paranasal sinuses, and mastoids appear normal. Normal flow voids are demonstrated in the carotid arteries and basilar artery. The calvarium and visualized cervical spine appear normal. Procedure Note Carmelina Marcial MD - 11/07/2024 PROCEDURE: MRI BRAIN WO CONTRAST, DATE/TIME OF EXAM: 11/06/2024 5:29 PM, LOCATION [facility] INDICATION: R29.898: Left arm weakness ADDITIONAL CLINICAL INFORMATION: Ordering Provider Reason For Exam: cva Technologist Note: Additional: TECHNIQUE: MRI of the brain was performed without intravenous contrast according to standard protocol. CONTRAST: COMPARISON: 11/06/2024. FINDINGS: Restricted diffusion with associated mild T2/FLAIR hyperintensity in the left cerebellar hemisphere as well as trace similar findings in the left medial occipital lobe concerning for an acute infarct (series 2 image 30 and 35). Additional small questionable focus of hyperintensity on theDWI sequence without definitive ADC correlate is noted in the left susan aswell as the central midbrain is indeterminate for an infarct (series 2 image31 and 32). No evidence of acute or chronic hemorrhage is identified. There is mild cerebral volume loss with associated ex vacuo ventricular dilatation. No mass effect or midline shift is seen. Mild periventricular andsubcortical white matter FLAIR hyperintensities are nonspecific, but can be seen inthe setting of chronic small vessel ischemic disease. A small chroniclacunar infarct in the right thalamus. A small chronic infarct in the rightfrontal lobe. Other than a chelsie-cisterna magna, the corpus callosum and sella appear normal. The posterior fossa, brainstem, and craniocervicaljunction appear normal. Other than mild paranasal sinus disease, the visualized portions of the orbits, paranasal sinuses, and mastoids appear normal. Normal flow voids are demonstrated in the carotid arteries and basilar artery. Thecalvarium and visualized cervical spine appear normal. IMPRESSION: 1. Small foci of acute infarcts in the left cerebellar hemisphere aswell as trace similar findings in the left medial occipital lobe. Additional small questionable focus of hyperintensity on the DWI sequence without definitive ADC correlate is noted in the left susan as well as thecentral midbrain is indeterminate for an infarct (series 2 image 31 and 32). 2. . Mild periventricular and subcortical white matter FLAIR hyperintensities are nonspecific, but can be seen in the setting ofchronic small vessel ischemic disease. A small chronic infarct in the rightfrontal lobe. A small chronic lacunar infarct in the right thalamus. Findings discussed with Dr. Ivory by Dr. Ruddy Villalobos at 11/07/2024 1:30AM with read back comprehension and verification. > Interpreting Provider: Carmelina Marcial MD on 11/07/2024 10:58 AM Carlo Thornton MD MR ORDERABLES * (ABNORMAL) TROPONIN-I HIGH SENSITIVE BASELINE + 1HR (11/06/2024 4:41 PM OBSTETRICIAN/GYNECOLOGIST) [facility] Troponin I High Sensitive 63(H) <=35 ng/L 11/06/2024 5:31 PM OBSTETRICIAN/GYNECOLOGIST [facility] Blood BLOOD SPECIMEN / Unknown Venipuncture / Unknown 11/06/2024 4:41 PM OBSTETRICIAN/GYNECOLOGIST 11/06/2024 4:51 PM OBSTETRICIAN/GYNECOLOGIST Carlo Thornton MD LAB - CHEMISTRY ARETHA [facility] Organization Address City/State/ZIP Co de Phone Number [facility] [address] [place] [phone], [facility] [phone] * (ABNORMAL) CBC W AUTO DIFFERENTIAL (11/06/2024 3:25 PM OBSTETRICIAN/GYNECOLOGIST) [facility] WBC 10.3 4.0 - 10.7 x10E9/L 11/06/2024 3:40 PM [facility] RBC Count 5.01 4.30 - 5.80 x10E12/L 11/06/2024 3:40 PM [facility] Hemoglobin 15.7 13.3 - 17.5 g/dL 11/06/2024 3:40 PM [facility] Hematocrit 46.8 38.7 - 51.1 % 11/06/2024 3:40 PM [facility] MCV 93.4 80.0 - 98.0 fL 11/06/2024 3:40 PM [facility] MCH 31.3 26.7 - 33.6 pg 11/06/2024 3:40 PM [facility] MCHC 33.5 31.7 - 36.3 g/dL 11/06/2024 3:40 PM [facility] RDW-CV 13.7 11.3 - 14.8 % 11/06/2024 3:40 PM [facility] Platelet Count 176 150 - 420 x10E9/L 11/06/2024 3:40 PM [facility] MPV 10.1 7.8 - 11.4 fL 11/06/2024 3:40 PM [facility] Neutrophil % 84.6(H) 41.0 - 74.0 % 11/06/2024 3:40 PM [facility] Lymphocyte % 8.7(L) 17.0 - 47.0 % 11/06/2024 3:40 PM [facility] Monocyte % 5.1 3.0 - 11.0 % 11/06/2024 3:40 PM [facility] Eosinophil % 0.8 0.0 - 7.0 % 11/06/2024 3:40 PM [facility] Basophil % 0.5 0.0 - 1.6 % 11/06/2024 3:40 PM [facility] Immature Granulocytes % 0.3 0.0 - 1.0 % 11/06/2024 3:40 PM [facility] Neutrophil Absolute 8.71(H) 1.60 - 7.50 x10E9/L 11/06/2024 3:40 PM [facility] Lymphocyte Absolute 0.89(L) 1.00 - 4.40 x10E9/L 11/06/2024 3:40 PM [facility] Monocyte Absolute 0.52 0.15 - 1.00 x10E9/L 11/06/2024 3:40 PM [facility] Eosinophil Absolute 0.08 0.00 - 0.60 x10E9/L 11/06/2024 3:40 PM [facility] Basophil Absolute 0.05 0.00 - 0.13 x10E9/L 11/06/2024 3:40 PM OBSTETRICIAN/GYNECOLOGIST [facility] Blood BLOOD SPECIMEN / Unknown Venipuncture / Unknown 11/06/2024 3:25 PM OBSTETRICIAN/GYNECOLOGIST 11/06/2024 3:32 PM OBSTETRICIAN/GYNECOLOGIST Thomas Castillo MD LAB - HEMATOLOG Y ORDERABLES Performing Organization Address City/[facility]/ZIP Co de Phone Number [address] [address], [facility] [phone] * (ABNORMAL) B-TYPE NATRIURETIC PEPTIDE (11/06/2024 3:25 PM OBSTETRICIAN/GYNECOLOGIST) BNP 1,454(H) <100 pg/mL 11/06/2024 4:07 PM [facility] Comment: A decision threshold of 100 pg/mL has been demonstrated to provide the maximal combination of sensitivity, specificity and predictive value for the diagnosis of congestive heart failure (CHF). Virtually all patients with no evidence of CHF have BNP values less than 100 pg/mL. A BNP value greater than 100 pg/mL is consistent with the diagnosis of CHF in the appropriate clinical setting. In a study of 693 patients (male and female) with diagnosed CHF, the following values were determined based on the NYHA functional classification system: NYHA Functional Class Mean Valule (pg/mL) % >100 pg/mL I 320 58.1 II 432 73.0 III 656 79.0 IV 1635 98.3 Blood BLOOD SPECIMEN / Unknown Venipuncture / Unknown 11/06/2024 3:25 PM OBSTETRICIAN/GYNECOLOGIST 11/06/2024 3:32 PM OBSTETRICIAN/GYNECOLOGIST Thomas Castillo MD LAB - CHEMISTRY ORDERABLES [facility] [address] [place] [phone], [facility] [phone] * LACTIC ACID BLOOD (11/06/2024 3:25 PM OBSTETRICIAN/GYNECOLOGIST) Lactic Acid-Stat 2.0 <=2.0 mmol/L 11/06/2024 4:03 PM [facility] Blood BLOOD SPECIMEN / Unknown Venipuncture / Unknown 11/06/2024 3:25 PM OBSTETRICIAN/GYNECOLOGIST 11/06/2024 3:32 PM OBSTETRICIAN/GYNECOLOGIST Thomas Castillo MD LAB - CHEMISTRY ORDERABLES Performing Organization Address [facility] Co de Phone Number [facility] [address] [place] [phone], [place] [phone] * EKG 12-LEAD (11/06/2024 2:50 PM OBSTETRICIAN/GYNECOLOGIST) [facility] Ventricular Rate 70 BPM [facility] MUSE QRS Duration ms 90 ms [facility] MUSE Q-T Interval ms 402 ms [facility] MUSE QTC Calculation (Bezet) 434 ms [facility] MUSE Calculated R [place] -20 degrees [facility] MUSE Calculated T [place] -63 degrees [facility] MUSE Interpretation EKG ATRIAL FIBRILLATION MODERATE VOLTAGE CRITERIA FOR LVH, MAY BE NORMAL VARIANT ( R in aVL , [place] product ) SEPTAL INFARCT , AGE UNDETERMINED ABNORMAL ECG Confirmed by ELIZABETH RENEE, KAYCEE ([id number]) on 11/09/2024 3:26:16 PM [facility] MUSE 11/06/2024 2:50 PM OBSTETRICIAN/GYNECOLOGIST 11/09/2024 3:26 PM OBSTETRICIAN/GYNECOLOGIST Bc Moss MD ECG ORDERABLES Performing Organization Address [facility] Co de Phone Number [facility] MUSE * (ABNORMAL) TROPONIN-I HIGH SENSITIVE (11/06/2024 2:43 PM OBSTETRICIAN/GYNECOLOGIST) [facility] Troponin I High Sensitive 60(H) <=35 ng/L 11/06/2024 3:23 PM OBSTETRICIAN/GYNECOLOGIST [facility] Blood BLOOD SPECIMEN / Unknown Venipuncture / Unknown 11/06/2024 2:43 PM OBSTETRICIAN/GYNECOLOGIST 11/06/2024 2:48 PM OBSTETRICIAN/GYNECOLOGIST Bc Moss MD LAB - CHEMISTRY ORDE [place]ALT Performing Organization Address City/[facility]/ZIP Co de Phone Number [address] [address], [place] [phone] * (ABNORMAL) COMPREHENSIVE METABOLIC PANEL (11/06/2024 2:43 PM [facility]) BUN 16 7 - 26 mg/dL 11/06/2024 3:36 PM [facility] Creatinine 1.24(H) 0.71 - 1.16 mg/dL 11/06/2024 3:36 PM [facility] Sodium 139 136 - 145 mmol/L 11/06/2024 3:36 PM [facility] Potassium 4.4 3.5 - 4.5 mmol/L 11/06/2024 3:36 PM [facility] Chloride 107 98 - 107 mmol/L 11/06/2024 3:36 PM [facility] CO2 22 22 - 29 mmol/L 11/06/2024 3:36 PM [facility] Glucose 103(H) 70 - 99 mg/dL 11/06/2024 3:36 PM [facility] Calcium 8.6 8.4 - 10.2 mg/dL 11/06/2024 3:36 PM [facility] Protein Total 6.4 6.0 - 8.3 g/dL 11/06/2024 3:36 PM [facility] Albumin 3.5 3.4 - 5.0 g/dL 11/06/2024 3:36 PM [facility] Bilirubin Total 0.9 0.2 - 1.2 mg/dL 11/06/2024 3:36 PM [facility] Alkaline Phosphatase 55 40 - 150 U/L 11/06/2024 3:36 PM [facility] ALT 13 5 - 55 U/L 11/06/2024 3:36 PM [facility] AST 21 5 - 34 U/L 11/06/2024 3:36 PM [facility] Anion Gap 10 6 - 16 11/06/2024 3:36 PM [facility] BUN/Creatinine Ratio 13 7 - 23 11/06/2024 3:36 PM [facility] Osmolality Calculated 289 275 - 295 mOsm/kg 11/06/2024 3:36 PM [facility] Albumin/Globulin Ratio 1.2 1.1 - 2.3 11/06/2024 3:36 PM [facility] eGFR by CKD-EPI 62(L) >=90 mL/min/1.7 3 m2 11/06/2024 3:36 PM [facility] Blood BLOOD SPECIMEN / Unknown Venipuncture / Unknown 11/06/2024 2:43 PM OBSTETRICIAN/GYNECOLOGIST 11/06/2024 2:48 PM OBSTETRICIAN/GYNECOLOGIST Thomas Castillo MD LAB - CHEMISTRY ORDERABLES Performing Organization Address City/State/[facility] Co de Phone Number [facility] [address] [place] [id number], [facility] [phone] * URINE DRUG SCREEN IMMUNOASSAY (11/06/2024 2:43 PM OBSTETRICIAN/GYNECOLOGIST) [facility] Amphetamines Screen Urine Negative Negative: < 1000 ng/mL 11/06/2024 3:15 PM [facility] Barbiturates Screen Urine Negative Negative: < 200 ng/mL 11/06/2024 3:15 PM [facility] Benzodiazepine Screen Urine Negative Negative: < 200 ng/mL 11/06/2024 3:15 PM [facility] Opiates Urine Negative Negative: < 300 ng/mL 11/06/2024 3:15 PM [facility] Cocaine Metabolites Urine Negative Negative: < 300 ng/mL 11/06/2024 3:15 PM [facility] Phencyclidine Screen Urine Negative Negative: < 25 ng/ml 11/06/2024 3:15 PM [facility] Cannabinoids Screen Urine Negative Negative: <50 ng/mL 11/06/2024 3:15 PM [facility] Methadone Screen Urine Negative Negative: < 300 ng/mL 11/06/2024 3:15 PM [facility] Fentanyl Screen Urine Negative Negative: <1.5 ng/mL 11/06/2024 3:15 PM [facility] Urine URINE / Unknown Collection / Unknown 11/06/2024 2:43 PM OBSTETRICIAN/GYNECOLOGIST 11/06/2024 2:48 PM OBSTETRICIAN/GYNECOLOGIST [facility] - 11/06/2024 3:15 PM OBSTETRICIAN/GYNECOLOGIST The Urine Toxicology Screening Panel does not screen for Propoxyphene, Meprobamate, Carisoprodol, Trazodone, jjdi-qwf-ebdonyk medications and/or volatiles (Acetone, Isopropanol, Methanol or Ethylene Glycol). Ethanol, Salicylate, Acetaminophen, Tricyclic Antidepressants and several therapeutic drugs may be individually assayed in serum or plasma specimen. Toxicology testing by the [facility] is an aid to medical diagnosis and treatment of patients. No documented chain of custody was maintained. Results are intended to be used for clinical purposes only. Bc Moss MD LAB - URINE CHEMISTR Y ORDERABLES [facility] [address] [place] [address], [facility] [phone] * CT Brain Stroke (11/06/2024 12:07 PM OBSTETRICIAN/GYNECOLOGIST) Anatomical Region Laterality Modality Head Computed Tomogra phy 11/06/2024 11:5 4 AM OBSTETRICIAN/GYNECOLOGIST Impressions 11/06/2024 11:59 AM OBSTETRICIAN/GYNECOLOGIST IMPRESSION: 1. No acute intracranial hemorrhage. 2. Small focus of hypoattenuation in the posterior right basal ganglia and the right thalamus may represent an acute infarct. Recommend a brain MRI to confirm this finding. These findings were discussed in detail with the patient's care provider, Dr. Jackson by Dr. Marcial via telephone at 11:57 AM on 11/06/2024 with readback comprehension and verification. > Interpreting Provider: Carmelina Macrial MD on 11/06/2024 11:59 AM Narrative 11/06/2024 11:59 AM OBSTETRICIAN/GYNECOLOGIST PROCEDURE: CT BRAIN STROKE, DATE/TIME OF EXAM: 11/06/2024 11:48 AM, LOCATION [facility] INDICATION: R42: Dizzy ADDITIONAL CLINICAL INFORMATION: Ordering Provider Reason For Exam: cva Technologist Note: Additional: TECHNIQUE: CT of the head was performed without contrast according to standard protocol. CONTRAST: COMPARISON: No prior study is available for comparison at the time of this dictation. FINDINGS: Small focus of hypoattenuation in the posterior right basal ganglia and the right thalamus may represent an acute infarct. No acute intracranial hemorrhage or intra- or extra-axial fluid collections are identified. There is mild cerebral volume loss with associated ex vacuo ventricular dilatation. The basal cisterns are patent. No mass effect or midline shift is seen. The nava-white matter differentiation is normal. Periventricular white matter hypoattenuation is a nonspecific finding that may be indicative of chronic small vessel ischemic disease. There is atherosclerotic calcification of the carotid siphons. Other than mild paranasal sinus disease, the visualized portions of the orbits, paranasal sinuses, and mastoids appear normal. No acute calvarial fracture is identified. Procedure Note Carmelina Marcial MD - 11/06/2024 PROCEDURE: CT BRAIN STROKE, DATE/TIME OF EXAM: 11/06/2024 11:48 AM, LOCATION [facility] INDICATION: R42: Dizzy ADDITIONAL CLINICAL INFORMATION: Ordering Provider Reason For Exam: cva Technologist Note: Additional: TECHNIQUE: CT of the head was performed without contrast according to standard protocol. CONTRAST: COMPARISON: No prior study is available for comparison at the time ofthis dictation. FINDINGS: Small focus of hypoattenuation in the posterior right basal ganglia andthe right thalamus may represent an acute infarct. No acute intracranial hemorrhage or intra- or extra-axial fluidcollections are identified. There is mild cerebral volume loss with associated exvacuo ventricular dilatation. The basal cisterns are patent. No mass effect or midline shift is seen. The nava-white matter differentiation is normal. Periventricular white matter hypoattenuation is a nonspecific findingthat may be indicative of chronic small vessel ischemic disease. There is atherosclerotic calcification of the carotid siphons. Other than mild paranasal sinus disease, the visualized portions of the orbits, paranasal sinuses, and mastoids appear normal. No acute calvarial fracture is identified. IMPRESSION: 1. No acute intracranial hemorrhage. 2. Small focus of hypoattenuation in the posterior right basal gangliaand the right thalamus may represent an acute infarct. Recommend a brain MRIto confirm this finding. These findings were discussed in detail with the patient's careprovider, Dr. Jackson by Dr. Marcial via telephone at 11:57 AM on 11/06/2024 withreadback comprehension and verification. > Interpreting Provider: Carmelina Marcial MD on 11/06/2024 11:59 AM Bc Moss MD CT ORDERABLES * CT Angio Brain And Neck (11/06/2024 12:07 PM OBSTETRICIAN/GYNECOLOGIST) Anatomical Region Laterality Modality Head Computed Tomogra phy 11/06/2024 12:1 6 PM OBSTETRICIAN/GYNECOLOGIST Impressions 11/06/2024 12:22 PM OBSTETRICIAN/GYNECOLOGIST IMPRESSION: 1. No large arterial occlusions or significant stenoses identified in the head or neck. > Interpreting Provider: Carmelina Marcial MD on 11/06/2024 12:22 PM Narrative 11/06/2024 12:22 PM OBSTETRICIAN/GYNECOLOGIST PROCEDURE: CT ANGIO BRAIN AND NECK, DATE/TIME OF EXAM: 11/06/2024 12:08 PM, LOCATION [facility] INDICATION: R42: Dizzy ADDITIONAL CLINICAL INFORMATION: Ordering Provider Reason For Exam: cva Technologist Note: Additional: EXAMINATION: 1. Computed tomographic (CT) angiography of the head without and with contrast 2. CT angiography of the neck with contrast TECHNIQUE: CT of the head was performed without contrast according to standard protocol. Then CT angiography of the head and neck was obtained after the uneventful administration of intravenous contrast. Three dimensional postprocessing was performed by the technologist and sent to the workstation for review. CONTRAST: IOPAMIDOL 76 % IV SOLN:75 mL COMPARISON: No prior study is available for comparison at the time of this dictation. FINDINGS: Non-angiographic findings: Please refer to the report of a concurrent noncontrast head CT for detailed intracranial findings. 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 Angiographic findings: Neck: There is atherosclerotic disease of the aortic arch. The configuration of the brachiocephalic vessels is typical. There is mild atherosclerotic calcification of the innominate and subclavian arteries. The right common and internal carotid arteries as well as the right carotid bifurcation are patent. There is atherosclerotic disease in the left carotid bifurcation and origin of the left internal carotid artery without focal stenosis. Other than atherosclerotic calcifications in the distal left internal carotid artery, the left common and internal carotid arteries otherwise appear patent. The cervical vertebral arteries are patent. The left vertebral artery is dominant. The diminutive right vertebral artery terminates into the right posterior inferior cerebellar artery. Head: There is atherosclerotic disease involving the distal internal carotid arteries without significant focal stenosis. The anterior cerebral arteries are patent. The middle cerebral arteries are patent. The posterior cerebral arteries are patent with origin of the right posterior cerebral artery. The distal vertebral arteries are patent. The basilar artery is patent patent. No aneurysms, spot sign, or signs of a high flow vascular malformation are identified. Procedure Note Carmelina Marcial MD - 11/06/2024 PROCEDURE: CT ANGIO BRAIN AND NECK, DATE/TIME OF EXAM: 11/06/2024 12:08PM, LOCATION [facility] INDICATION: R42: Dizzy ADDITIONAL CLINICAL INFORMATION: Ordering Provider Reason For Exam: cva Technologist Note: Additional: EXAMINATION: 1. Computed tomographic (CT) angiography of the head without and with contrast 2. CT angiography of the neck with contrast TECHNIQUE: CT of the head was performed without contrast according to standard protocol. Then CT angiography of the head and neck was obtained after the uneventful administration of intravenous contrast. Three dimensional postprocessing was performed by the technologist and sent to the workstation for review. CONTRAST: IOPAMIDOL 76 % IV SOLN:75 mL COMPARISON: No prior study is available for comparison at the time ofthis dictation. FINDINGS: Non-angiographic findings: Please refer to the report of a concurrent noncontrast head CT fordetailed intracranial findings. 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 Angiographic findings: Neck: There is atherosclerotic disease of the aortic arch. The configurationof the brachiocephalic vessels is typical. There is mild atherosclerotic calcification of the innominate and subclavian arteries. The rightcommon and internal carotid arteries as well as the right carotid bifurcationare patent. There is atherosclerotic disease in the left carotid bifurcation and origin of the left internal carotid artery without focal stenosis. Other than atherosclerotic calcifications in the distal left internal carotid artery, the left common and internal carotid arteries otherwise appear patent. The cervical vertebral arteries are patent. The left vertebral artery is dominant. The diminutive right vertebral artery terminates into the right posterior inferior cerebellar artery. Head: There is atherosclerotic disease involving the distal internal carotid arteries without significant focal stenosis. The anterior cerebralarteries are patent. The middle cerebral arteries are patent. The posterior cerebral arteries are patent with origin of the right posterior cerebral artery. The distal vertebral arteries are patent. The basilar artery is patent patent. No aneurysms, spot sign, or signs of a highflow vascular malformation are identified. IMPRESSION: 1. No large arterial occlusions or significant stenoses identified inthe head or neck. > Interpreting Provider: Carmelina Marcial MD on 11/06/2024 12:22 PM [address] Moss MD CT ORDERABLES * INR WHOLE BLOOD - POINT OF CARE (IP) STROKE (11/06/2024 11:55 AM OBSTETRICIAN/GYNECOLOGIST) INR 1.0 0.9 - 1.2 11/06/2024 12:15 PM [facility] Device [id number] 11/06/2024 12:15 PM [facility] Dental Service Chief ID [id number] 11/06/2024 12:15 PM [facility] Blood BLOOD SPECIMEN / Unknown 11/06/2024 11:55 AM OBSTETRICIAN/GYNECOLOGIST 11/06/2024 12:15 PM OBSTETRICIAN/GYNECOLOGIST Bc Moss MD LAB - POINT OF CARE ORDERABLES [facility] [address] [place] [address], [place] [phone] * (ABNORMAL) CREATININE - POCT INTERFACED (11/06/2024 11:48 AM OBSTETRICIAN/GYNECOLOGIST) Creatinine POCT 1.04 0.30 - 1.30 mg/dL 11/06/2024 12:06 PM [facility] eGFR 76(L) >=90 mL/min/1.7 3 m2 11/06/2024 12:06 PM [facility] Blood BLOOD SPECIMEN / Unknown 11/06/2024 11:48 AM OBSTETRICIAN/GYNECOLOGIST 11/06/2024 12:06 PM OBSTETRICIAN/GYNECOLOGIST Bc Moss MD LAB - POINT OF CARE ORDERABLES [facility] [address] [place] [phone], [place] [phone] from Last 3 Months Advance Directives * Full Code (Latest Code Status on File) Date Activated Date Inactivated Comments 11/06/2024 4:32 PM 11/07/2024 3:20 PM Care Teams Bearing Grinder Relationship Specialty Start Date End Date Reymundo Porter DO [address] [place] [id number] PCP - General 04/06/21
--- OUTSIDE RECORDS SUMMARY | 2024-12-30 10:28 | XMS_ITS | Clinical Summary ---
Author Organization [facility] Address [address] [place] [address] Care Team Providers Care It Integration Architect Name Role Phone Reymundo Porter DO Primary Care Provider [phone] Source Comments [facility] [employer],non-owned Affiliates and Associated Physician Practices is amultiple site organization consisting of ambulatory clinics and hospital sitesin [place], [place], [place] and [place]. This disclosure is being madepursuant to the Care Everywhere program and may not contain all information available regarding this patient. Last updated 18.[facility] [employer] Allergies No known active allergies Medications * [...] Date Dizzy 11/06/2024 Left arm weakness 11/06/2024 Encounters Date Type Department Care Team Description 11/06/2024 11:44 AM [facility] - 11/07/2024 2:10 PM [facility] Hospital Encounter [facility] 5[address] ACUTE [address] [place] [address] Bc Moss MD Burkhartsmeier, Cole J, MD Scott, Jordan K, MD Linares, Guillermo, MD Neurology Discharge Disposition: Home or Self Care 11/06/2024 Travel from Last 3 Months Social History Tobacco Use Types Packs/Day Years [...] Recorded Patient Health Questionnaire-2 Score 0 11/06/2024 [facility] - Occupational Stress [...] any time in the past 12 m [facility], were you homeless or living in a longterm (including now)? No 11/06/2024 Sex and Gender Information Value Date Recorded Sex Assigned at Not on file Gender Identity Not on file Sexual Orientation Not on file Last Filed Vital Signs Vital Sign Reading Time Taken Comments Blood Pressure 142/73 11/07/2024 11:23 AM [facility] Pulse 80 11/07/2024 11:23 AM [facility] Temperature 36.3 C (97.3 F) 11/07/2024 11:23 AM [facility] Respiratory Rate 18 11/07/2024 11:23 AM [facility] Oxygen Saturation 99% 11/07/2024 11:23 AM [facility] Inhaled Oxygen Concentration - - Weight 79.7 kg (175 lb 9.6 oz) 11/06/2024 7:34 P M [facility] Height 165.1 cm (5' 5 ) 11/06/2024 7:34 PM [facility] Body Mass Index 29.22 11/06/2024 7:34 PM [facility] Plan of Treatment Health Maintenance Due Date Last Done Comments COLOGUARD (AGES 45-75) - COLON CA SCREENING 1952 COLON MONITORING 1952 COLONOSCOPY - COLON CA SCREENING 1952 CT COLONOGRAPHY - COLON CA SCREENING 1952 Colorectal Cancer Screening 1952 FIT - COLON CA SCREENING 1952 FLEX SIG - COLON CA SCREENING 1952 HEPATITIS C SCREENING 04/12/1970 DTAP/TDAP/TD VACCINES (1 - Tdap) 1971 PNEUMOCOCCAL VACCINE 50+ (1 of 1 - PCV) 2002 ZOSTER VACCINE (1 of 2) 2002 Respiratory Syncytial Virus (RSV) Vaccine Pt: or over 60 yrs (1 - Risk 60-74 years 1-dose series) 2012 COVID-19 VACCINE ( season) 2024 11/13/2022, 10/18/2021, 01/23/2021, Additional history exists MEDICARE AWV CALENDAR YEAR 2024 INFLUENZA VACCINE Completed 10/20/2024, 08/11/2021 DEPRESSION SCREENING Completed 11/06/2024 HEPATITIS B VACCINE Aged Out No longe r eligible based on patient's age to complete this topic HIB VACCINE Aged Out No longer eligi ble based on patient's age to complete this topic HPV VACCINE Aged Out No longer eligi ble based on patient's age to complete this topic MENINGOCOCCAL (Group B) VACCINE Aged Out No longer eligible based on patient's age to complete this topic MENINGOCOCCAL VACCINE Aged Out No antoni dillon eligible based on patient's age to complete this topic Procedures Procedure Name Priority Date/Time Associated Diagnosis Comments CARDIAC EKG ORDER 11/13/2024 11: 55 AM [facility] GLUCOSE - POINT OF CARE Routine 11/07/2024 11:20 AM [facility] GLUCOSE - POINT OF CARE Routine 11/07/2024 7:45 AM [facility] LIPID PROFILE Routine 11/07/2024 3:25 AM [facility] CBC W/O DIFFERENTIAL Routine 11/07/2024 3:25 AM [facility] BASIC METABOLIC PANEL (CALCIUM TOTAL) Routine 11/07/2024 3:25 AM [facility] GLUCOSE - POINT OF CARE Routine 11/06/2024 8:30 PM [facility] TROPONIN-I HIGH SENSITIVE REFLEX 1HOUR Timed 11/06/2024 6:23 PM [facility] HEMOGLOBIN A1C Add on 11/06/2024 6:23 PM [facility] MRI BRAIN WO CONTRAST STAT 11/06/2024 5:29 PM [facility] Left arm weakness TROPONIN-I HIGH SENSITIVE BASELINE + 1HR STAT 11/06/2024 4:41 PM [facility] OT EVAL AND TREAT Routine 11/06/2024 4:3 2 PM [facility] LACTIC ACID BLOOD STAT 11/06/2024 3:2 5 PM [facility] CBC W AUTO DIFFERENTIAL STAT 11/06/2024 3:25 PM [facility] B-TYPE NATRIURETIC PEPTIDE STAT 11/06/2024 3:25 PM [facility] EKG 12-LEAD Routine 11/06/2024 2:50 PM [facility] Dizzy COMPREHENSIVE METABOLIC PANEL STAT 11/06/2024 2:43 PM [facility] URINE DRUG SCREEN IMMUNOASSAY STAT 11/06/2024 2:43 PM [facility] TROPONIN-I HIGH SENSITIVE STAT 11/06/2024 2:43 PM [facility] CT ANGIO BRAIN AND NECK STAT 11/06/2024 12:07 PM [facility] Dizzy CT BRAIN STROKE STAT 11/06/2024 12:07 PM [facility] Dizzy INR WHOLE BLOOD - POINT OF CARE (IP) STROKE Routine 11/06/2024 11:55 AM [facility] CREATININE - POCT INTERFACED Routine 11/06/2024 11:48 AM [facility] GLUCOSE - POINT OF CARE Routine 11/06/2024 11:46 AM [facility] from Last 3 Months Results * CARDIAC EKG ORDER (11/13/2024 11:55 AM [facility]) Narrative 11/13/2024 11:55 AM [facility] Ordered by an unspecified provider. Scanned Document CARDIAC SERVICES ORD ERABLES * (ABNORMAL) GLUCOSE - POINT OF CARE (11/07/2024 11:20 AM [facility]) Only the most recent of4 resultswithin the time period is included. Glucose WB/POC 129(H) 70 - 99 mg/dL 11/07/2024 11:50 AM [facility] Specimen Type Cap Fingerstick 2024 11:50 AM [facility] Blood BLOOD SPECIMEN / Unknown 11/07/2024 11:20 AM [facility] 11/07/2024 11:50 AM [facility] Gerard Singletary MD LAB - POINT OF CARE ORDERABLES [facility] [address] [place] [address], [facility] [phone] * CBC W/O DIFFERENTIAL (11/07/2024 3:25 AM [facility]) WBC 8.3 4.0 - 10.7 x10E9/L 11/07/2024 5:00 AM [facility] RBC Count 4.81 4.30 - 5.80 x10E12/L 11/07/2024 5:00 AM [facility] Hemoglobin 15.0 13.3 - 17.5 g/dL 11/07/2024 5:00 AM [facility] Hematocrit 45.6 38.7 - 51.1 % 11/07/2024 5:00 AM [facility] MCV 94.8 80.0 - 98.0 fL 11/07/2024 5:00 AM [facility] MCH 31.2 26.7 - 33.6 pg 11/07/2024 5:00 AM [facility] MCHC 32.9 31.7 - 36.3 g/dL 11/07/2024 5:00 AM [facility] RDW-CV 13.6 11.3 - 14.8 % 11/07/2024 5:00 AM [facility] Platelet Count 161 150 - 420 x10E9/L 11/07/2024 5:00 AM [facility] MPV 10.6 7.8 - 11.4 fL 11/07/2024 5:00 AM [facility] Blood BLOOD SPECIMEN / Unknown Lab Venipuncture / Unknown 11/07/2024 3:25 AM [facility] 11/07/2024 4:53 AM [facility] Carlo Thornton MD LAB - HEMATOLOGY ORD ERABLES [facility] [address] [place] [address], [facility] [phone] * (ABNORMAL) BASIC METABOLIC PANEL (CALCIUM TOTAL) (11/07/2024 3:25 AM [facility]) BUN 18 7 - 26 mg/dL 11/07/2024 5:39 AM [facility] Creatinine 1.11 0.71 - 1.16 mg/dL 11/07/2024 5:39 AM [facility] Sodium 140 136 - 145 mmol/L 11/07/2024 5:39 AM [facility] Potassium 4.0 3.5 - 4.5 mmol/L 11/07/2024 5:39 AM [facility] Chloride 108(H) 98 - 107 mmol/L 11/07/2024 5:39 AM [facility] CO2 23 22 - 29 mmol/L 11/07/2024 5:39 AM [facility] Glucose 75 70 - 99 mg/dL 11/07/2024 5:39 AM [facility] Calcium 8.5 8.4 - 10.2 mg/dL 11/07/2024 5:39 AM [facility] Anion Gap 9 6 - 16 11/07/2024 5:39 AM [facility] BUN/Creatinine Ratio 16 7 - 23 11/07/2024 5:39 AM [facility] Osmolality Calculated 291 275 - 295 mOsm/kg 11/07/2024 5:39 AM [facility] eGFR by CKD-EPI 71(L) >=90 mL/min/1.7 3 m2 11/07/2024 5:39 AM [facility] Blood BLOOD SPECIMEN / Unknown Lab Venipuncture / Unknown 11/07/2024 3:25 AM [facility] 11/07/2024 4:52 AM [facility] Carlo Thornton MD LAB - CHEMISTRY ARETHA GODOY [facility] Organization Address [facility] Co de Phone Number [facility] [address] [place] [phone] [phone] * (ABNORMAL) LIPID PROFILE (11/07/2024 3:25 AM [facility]) Cholesterol Total 110 <200 mg/dL 11/07/2024 5:39 AM [facility] HDL 34(L) >40 mg/dL 11/07/2024 5:39 AM [facility] Comment: ATP III Classification of HDL Cholesterol: <40 mg/dL: Considered a major risk factor. >60 mg/dL: Considered a negative risk factor. LDL Calculated 66 <100 mg/dL 11/07/2024 5:39 AM [facility] Comment: ATP III Classification of LDL Cholesterol: <100 mg/dL: Optimal 100 - 129 mg/dL: Near Optimal/Above Optimal 130 - 159 mg/dL: Borderline High 160 - 189 mg/dL: High >190 mg/dL: Very High Triglycerides 49 <150 mg/dL 11/07/2024 5:39 AM [facility] Comment: ATP III Classification of Triglycerides: <150 mg/dL: Normal 150 - 199 mg/dL: Borderline High 200 - 400 mg/dL: High >500 mg/dL: Very High Blood BLOOD SPECIMEN / Unknown Lab Venipuncture / Unknown 11/07/2024 3:25 AM [facility] 11/07/2024 4:52 AM [facility] Carlo Thornton MD LAB - CHEMISTRY ARETHA GODOY Performing Organization Address City/[facility]/ZIP Co de Phone Number [address] [address], [facility] [phone] * (ABNORMAL) TROPONIN-I HIGH SENSITIVE REFLEX 1HOUR (11/06/2024 6:23 PM [facility]) Troponin I High Sensitive 57(H) <=35 ng/L 11/06/2024 7:35 PM [facility] Delta Troponin I HS 11/06/2024 7:35 PM [facility] Comment:Delta value intentio karrie not calculated. Baseline to 1 hour specimen collection interval exceeded. Blood BLOOD SPECIMEN / Unknown Lab Venipuncture / Unknown 11/06/2024 6:23 PM [facility] 11/06/2024 7:01 PM [facility] Carlo Thornton MD LAB - CHEMISTRY ARETHA GODOY Performing Organization Address City/[facility]/ZIP Co de Phone Number [address] [address], [facility] [phone] * HEMOGLOBIN A1C (11/06/2024 6:23 PM [facility]) Hemoglobin A1c 5.1 <=5.6 % 11/07/2024 7:30 AM [facility] Estimated Average Glucose 100 mg/dL 11/07/2024 7:30 AM [facility] Comment: HbA1c Interpretation: Normal : < 5.7% Pre-diabetes: 5.7-6.4% Diabetes: Equal to or greater than 6.5% Test results diagnostic of diabetes should be repeated for confirmation. Treatment target values recommended by ADA and other clinical organizations should be used to evaluate metabolic control in patients. Reference: [place] [employer], Standards of Care in Diabetes -2020 In patients 70 years and older consider HbA1c target range of 7.0-7.5% (Reference: Meño Piedra et al. JAMDA. 2012) The Sebia assay for the measurement of HbA1c is a National Glycohemoglobin Standardization Program (NGSP) certified method. Blood BLOOD SPECIMEN / Unknown Lab Venipuncture / Unknown 11/06/2024 6:23 PM [facility] 11/06/2024 6:56 PM [facility] Carlo Thornton MD LAB - CHEMISTRY ARETHA GODOY [facility] Organization Address City/State/ZIP Co de Phone Number [facility] [address] [address], [facility] [phone] * MRI BRAIN WO CONTRAST (11/06/2024 5:29 PM [facility]) Anatomical Region Laterality Modality Head Magnetic Resonan ce 11/07/2024 10:5 0 AM [facility] Impressions 11/07/2024 10:58 AM [facility] IMPRESSION: 1. Small foci of acute infarcts [...] 11/07/2024 10:58 AM Narrative 11/07/2024 10:58 AM [facility] PROCEDURE: MRI BRAIN WO CONTRAST, DATE/TIME OF EXAM: 11/06/2024 5:29 PM, LOCATION [facility] INDICATION: R29.898: Left arm weakness ADDITIONAL CLINICAL [...] DATE/TIME OF EXAM: 11/06/2024 5:29 PM, LOCATION [facility] INDICATION: R29.898: Left arm weakness ADDITIONAL CLINICAL [...] SENSITIVE BASELINE + 1HR (11/06/2024 4:41 PM [facility]) Pathologist [facility] [place] Troponin I High Sensitive 63(H) <=35 ng/L 11/06/2024 5:31 PM [facility] Blood BLOOD SPECIMEN / Unknown Venipuncture / Unknown 11/06/2024 4:41 PM [facility] 11/06/2024 4:51 PM [facility] Carlo Thornton MD LAB - CHEMISTRY ARETHA GODOY [facility] Organization Address City/State/ZIP Co de Phone Number [facility] [address] [place] [phone], [facility] [phone] * (ABNORMAL) CBC W AUTO DIFFERENTIAL (11/06/2024 3:25 PM [facility]) WBC 10.3 4.0 - 10.7 x10E9/L 11/06/2024 3:40 PM [facility] RBC Count 5.01 4.30 - 5.80 x10E12/L 11/06/2024 3:40 PM [facility] Hemoglobin 15.7 13.3 - 17.5 g/dL 11/06/2024 3:40 PM [facility] Hematocrit 46.8 38.7 - 51.1 % 11/06/2024 3:40 PM [facility] MCV 93.4 80.0 - 98.0 fL 11/06/2024 3:40 PM [facility] MCH 31.3 26.7 - 33.6 pg 11/06/2024 3:40 PM [facility] MCHC 33.5 31.7 - 36.3 g/dL 11/06/2024 3:40 PM [facility] RDW-CV 13.7 11.3 - 14.8 % 11/06/2024 3:40 PM [facility] Platelet Count 176 150 - 420 x10E9/L 11/06/2024 3:40 PM [facility] MPV 10.1 7.8 - 11.4 fL 11/06/2024 3:40 PM [facility] Neutrophil % 84.6(H) 41.0 - 74.0 % 11/06/2024 3:40 PM [facility] Lymphocyte % 8.7(L) 17.0 - 47.0 % 11/06/2024 3:40 PM [facility] Monocyte % 5.1 3.0 - 11.0 % 11/06/2024 3:40 PM [facility] Eosinophil % 0.8 0.0 - 7.0 % 11/06/2024 3:40 PM [facility] Basophil % 0.5 0.0 - 1.6 % 11/06/2024 3:40 PM [facility] Immature Granulocytes % 0.3 0.0 - 1.0 % 11/06/2024 3:40 PM [facility] Neutrophil Absolute 8.71(H) 1.60 - 7.50 x10E9/L 11/06/2024 3:40 PM [facility] Lymphocyte Absolute 0.89(L) 1.00 - 4.40 x10E9/L 11/06/2024 3:40 PM [facility] Monocyte Absolute 0.52 0.15 - 1.00 x10E9/L 11/06/2024 3:40 PM [facility] Eosinophil Absolute 0.08 0.00 - 0.60 x10E9/L 11/06/2024 3:40 PM [facility] Basophil Absolute 0.05 0.00 - 0.13 x10E9/L 11/06/2024 3:40 PM [facility] Blood BLOOD SPECIMEN / Unknown Venipuncture / Unknown 11/06/2024 3:25 PM [facility] 11/06/2024 3:32 PM [facility] Thomas Castillo MD LAB - HEMATOLOG Y ORDERABLES [facility] [address] [place] [address], [facility] [phone] * (ABNORMAL) B-TYPE NATRIURETIC PEPTIDE (11/06/2024 3:25 PM [facility]) BNP 1,454(H) <100 pg/mL 11/06/2024 4:07 PM [facility] Comment: A decision threshold of 100 pg/mL [...] Unknown Venipuncture / Unknown 11/06/2024 3:25 PM [facility] 11/06/2024 3:32 PM [facility] Thomas Castillo MD LAB - CHEMISTRY ORDERABLES Performing Organization Address [facility]/ZIP Co de Phone Number [address] [address], [facility] [phone] * LACTIC ACID BLOOD (11/06/2024 3:25 PM [facility]) [facility] Lactic Acid-Stat 2.0 <=2.0 mmol/L 11/06/2024 4:03 PM [facility] Blood BLOOD SPECIMEN / Unknown Venipuncture / Unknown 11/06/2024 3:25 PM [facility] 11/06/2024 3:32 PM [facility] Thomas Castillo MD LAB - CHEMISTRY ORDERABLES Performing Organization Address [facility] Co de Phone Number [address] [address], [facility] [phone] * EKG 12-LEAD (11/06/2024 2:50 PM [facility]) [facility] Ventricular Rate 70 BPM [facility] MUSE QRS Duration ms 90 ms [facility] MUSE Q-T Interval ms 402 ms [facility] QTC Calculation (Bezet) 434 ms SL MUSE Calculated R [place] -20 degrees SL MUSE Calculated T [place] -63 degrees [facility] MUSE Interpretation EKG ATRIAL FIBRILLATION MODERATE VOLTAGE CRITERIA FOR LVH, MAY BE NORMAL VARIANT ( R in aVL , Matthew product ) SEPTAL INFARCT , AGE UNDETERMINED ABNORMAL ECG Confirmed by ELIZABETH RENEE, KAYCEE ([id number]) on 11/09/2024 3:26:16 PM [facility] MUSE 11/06/2024 2:50 PM [facility] 11/09/2024 3:26 PM [facility] Bc Moss MD ECG ORDERABLES [facility] * (ABNORMAL) TROPONIN-I HIGH SENSITIVE (11/06/2024 2:43 PM [facility]) [facility] Troponin I High Sensitive 60(H) <=35 ng/L 11/06/2024 3:23 PM [facility] Blood BLOOD SPECIMEN / Unknown Venipuncture / Unknown 11/06/2024 2:43 PM [facility] 11/06/2024 2:48 PM [facility] Bc Moss MD LAB - CHEMISTRY ORDE WALT Performing Organization Address City/[facility]/ZIP Co de Phone Number [facility] [address] [place] [phone], [facility] [phone] * (ABNORMAL) COMPREHENSIVE METABOLIC PANEL (11/06/2024 2:43 PM [facility]) [facility] BUN 16 7 - 26 mg/dL 11/06/2024 3:36 PM [facility] Creatinine 1.24(H) 0.71 - 1.16 mg/dL 11/06/2024 3:36 PM [facility] Sodium 139 136 - 145 mmol/L 11/06/2024 3:36 PM [facility] Potassium 4.4 3.5 - 4.5 mmol/L 11/06/2024 3:36 PM [facility] Chloride 107 98 - 107 mmol/L 11/06/2024 3:36 PM [facility] CO2 22 22 - 29 mmol/L 11/06/2024 3:36 PM [facility] Glucose 103(H) 70 - 99 mg/dL 11/06/2024 3:36 PM [facility] Calcium 8.6 8.4 - 10.2 mg/dL 11/06/2024 3:36 PM [facility] Protein Total 6.4 6.0 - 8.3 g/dL 11/06/2024 3:36 PM [facility] Albumin 3.5 3.4 - 5.0 g/dL 11/06/2024 3:36 PM [facility] Bilirubin Total 0.9 0.2 - 1.2 mg/dL 11/06/2024 3:36 PM [facility] Alkaline Phosphatase 55 40 - 150 U/L 11/06/2024 3:36 PM [facility] ALT 13 5 - 55 U/L 11/06/2024 3:36 PM [facility] AST 21 5 - 34 U/L 11/06/2024 3:36 PM [facility] Anion Gap 10 6 - 16 11/06/2024 3:36 PM [facility] BUN/Creatinine Ratio 13 7 - 23 11/06/2024 3:36 PM [facility] Osmolality Calculated 289 275 - 295 mOsm/kg 11/06/2024 3:36 PM [facility] Albumin/Globulin Ratio 1.2 1.1 - 2.3 11/06/2024 3:36 PM [facility] eGFR by CKD-EPI 62(L) >=90 mL/min/1.7 3 m2 11/06/2024 3:36 PM [facility] Blood BLOOD SPECIMEN / Unknown Venipuncture / Unknown 11/06/2024 2:43 PM [facility] 11/06/2024 2:48 PM [facility] Thomas Castillo MD LAB - CHEMISTRY ORDERABLES [facility] [address] [place] [address], [facility] [phone] * URINE DRUG SCREEN IMMUNOASSAY (11/06/2024 2:43 PM [facility]) [facility] Amphetamines Screen Urine Negative Negative: < 1000 ng/mL 11/06/2024 3:15 PM [facility] Barbiturates Screen Urine Negative Negative: < 200 ng/mL 11/06/2024 3:15 PM [facility] Benzodiazepine Screen Urine Negative Negative: < 200 ng/mL 11/06/2024 3:15 PM [facility] Opiates Urine Negative Negative: < 300 ng/mL 11/06/2024 3:15 PM [facility] Cocaine Metabolites Urine Negative Negative: < 300 ng/mL 11/06/2024 3:15 PM [facility] Phencyclidine Screen Urine Negative Negative: < 25 ng/ml 11/06/2024 3:15 PM [facility] Cannabinoids Screen Urine Negative Negative: <50 ng/mL 11/06/2024 3:15 PM [facility] Methadone Screen Urine Negative Negative: < 300 ng/mL 11/06/2024 3:15 PM [facility] Fentanyl Screen Urine Negative Negative: <1.5 ng/mL 11/06/2024 3:15 PM [facility] Urine URINE / Unknown Collection / Unknown 11/06/2024 2:43 PM [facility] 11/06/2024 2:48 PM [facility] - 11/06/2024 3:15 PM [facility] The Urine Toxicology Screening Panel does not screen for Propoxyphene, Meprobamate, Carisoprodol, Trazodone, [id number]-aqtbtdr medications and/or volatiles (Acetone, Isopropanol, Methanol or Ethylene Glycol). Ethanol, Salicylate, Acetaminophen, Tricyclic Antidepressants and several therapeutic drugs may be individually assayed in serum or plasma specimen. Toxicology testing by the [facility] is an aid to medical diagnosis and treatment of patients. No documented chain of custody was maintained. Results are intended to be used for clinical purposes only. Bc Moss MD LAB - URINE CHEMISTR Y ORDERABLES [facility] [address] [place] [address], [facility] [phone] * CT Brain Stroke (11/06/2024 12:07 PM [facility]) Anatomical Region Laterality Modality Head Computed Tomogra phy 11/06/2024 11:5 4 AM [facility] Impressions 11/06/2024 11:59 AM [facility] IMPRESSION: 1. No acute intracranial hemorrhage. 2. [...] Carmelina Marcial MD on 11/06/2024 11:59 AM Narrative 11/06/2024 11:59 AM [facility] PROCEDURE: CT BRAIN STROKE, DATE/TIME OF EXAM: 11/06/2024 11:48 AM, LOCATION [facility] INDICATION: R42: Dizzy ADDITIONAL CLINICAL INFORMATION: Ordering [...] DATE/TIME OF EXAM: 11/06/2024 11:48 AM, LOCATION [facility] INDICATION: R42: Dizzy ADDITIONAL CLINICAL INFORMATION: Ordering [...] Angio Brain And Neck (11/06/2024 12:07 PM [employer]) Anatomical Region Laterality Modality Head Computed Tomogra phy 11/06/2024 12:1 6 PM [employer] Impressions 11/06/2024 12:22 PM [employer] IMPRESSION: 1. No large arterial occlusions or significant stenoses identified in the head or neck. > Interpreting Provider: Carmelina Marcial MD on 11/06/2024 12:22 PM Narrative 11/06/2024 12:22 PM [employer] PROCEDURE: CT ANGIO BRAIN AND NECK, DATE/TIME OF EXAM: 11/06/2024 12:08 PM, LOCATION [facility] INDICATION: R42: Dizzy ADDITIONAL CLINICAL INFORMATION: Ordering [...] NECK, DATE/TIME OF EXAM: 11/06/2024 12:08PM, LOCATION [facility] INDICATION: R42: Dizzy ADDITIONAL CLINICAL INFORMATION: Ordering [...] OF CARE (IP) STROKE (11/06/2024 11:55 AM [employer]) [facility] INR 1.0 0.9 - 1.2 11/06/2024 12:15 PM [employer] [facility] Device [id number] 11/06/2024 12:15 PM SUPERVISOR [facility]TA[facility]ICE [facility] [employer] ID [id number] 11/06/2024 12:15 PM SUPERVISOR CONTACT AND SERVICE [facility] Blood BLOOD SPECIMEN / Unknown 11/06/2024 11:55 AM SUPERVISOR [facility] 11/06/2024 12:15 PM SUPERVISOR [facility]TA[facility] Bc Moss MD LAB - POINT OF CARE ORDERABLES [facility] [address] [place] [id number], [facility] [phone] * (ABNORMAL) CREATININE - POCT INTERFACED (11/06/2024 11:48 AM SUPERVISOR [facility]) Creatinine POCT 1.04 0.30 - 1.30 mg/dL 11/06/2024 12:06 PM SUPERVISOR [facility]TACT [facility] SERVICE [facility] eGFR 76(L) >=90 mL/min/1.7 3 m2 11/06/2024 12:06 PM SUPERVISOR [facility]TA[facility]ICE [facility] Blood BLOOD SPECIMEN / Unknown 11/06/2024 11:48 AM SUPERVISOR [facility] 11/06/2024 12:06 PM SUPERVISOR [facility]TA[facility] Bc Moss MD LAB - POINT OF CARE ORDERABLES [facility] [address] [place] [address], [facility] [phone] from Last 3 Months Advance Directives * Full Code (Latest Code Status on File) Date Activated Date Inactivated Comments 11/06/2024 4:32 PM 11/07/2024 3:20 PM Care Teams It Integration Architect Relationship Specialty Start Date End Date Reymundo Porter DO [address] [place], [place] [id number] PCP - General 04/06/21
--- OUTSIDE RECORDS SUMMARY | 2024-12-30 10:28 | XMS_ITS | Patient Health Summary ---
Author Organization [facility] Address [address] [place] [address] Care Team Providers Care Ceramics Technician Name Role Phone Reymundo Porter DO Primary Care Provider [phone] Note from [facility],non-owned Affiliates and Associated Physician Practices is amultiple site organization consisting of ambulatory clinics and hospital sitesin [place], [place], [place] and [place]. This disclosure is being madepursuant to the Care Everywhere program and may not contain all information available regarding this patient. Last updated 18.[facility] [employer] Allergies No known active allergies Medications * Be aware that medications may not be up to date on this document. Alwaysverify current medications with the patient. * apixaban (Eliquis) 5 MG tablet(Started 11/07/2024) Take 1 (one) tablet by mouth 2 times daily for 90 days 2 refills by 11/07/2025 * atorvastatin (Lipitor) 40 MG tablet(Started 11/07/2024) Take 1 (one) tablet by mouth at bedtime for 90 days 2 refills by 11/07/2025 Active Problems Problem Noted Date Diagnosed Date [...] you are drinking? Patient does not drink 01/03/202 5 Q3: How often do you have si x or more drinks on one occasion? Never 11/06/2024 Overall Financial Resource Strain (CARDIA) Answe r Date Recorded How hard is it for you to pa y for the very basics like food, housing, medical care, and heating? Not hard at all 11/06/2024 PHQ-2 Answer Date Recorded Patient Health Questionnaire-2 Score 0 11/06/2024 [facility] ional [facility] - Occupational Stress Questionnaire Answer Date Recorded [...] any time in the past 12 m [facility], were you homeless or living in a fdc (including now)? No 11/06/2024 Sex and Gender Information Value Date Recorded Sex Assigned at Not on file Gender Identity Not on file Sexual Orientation Not on file Last Filed Vital Signs Vital Sign Reading Time Taken Comments Blood Pressure 142/73 11/07/2024 11:23 AM CLUTCH OPERATOR Pulse 80 11/07/2024 11:23 AM CLUTCH OPERATOR Temperature 36.3 C (97.3 F) 11/07/2024 11:23 AM CLUTCH OPERATOR Respiratory Rate 18 11/07/2024 11:23 AM CLUTCH OPERATOR Oxygen Saturation 99% 11/07/2024 11:23 AM CLUTCH OPERATOR Inhaled Oxygen Concentration - - Weight 79.7 kg (175 lb 9.6 oz) 11/06/2024 7:34 P M CLUTCH OPERATOR Height 165.1 cm (5' 5 ) 11/06/2024 7:34 PM CLUTCH OPERATOR Body Mass Index 29.22 11/06/2024 7:34 PM CLUTCH OPERATOR Procedures * CARDIAC EKG ORDER(Performed 11/13/2024) * GLUCOSE - POINT OF CARE(Performed 11/07/2024) * GLUCOSE - POINT OF CARE(Performed 11/07/2024) * LIPID PROFILE(Performed 11/07/2024) * CBC W/O DIFFERENTIAL(Performed 11/07/2024) * BASIC METABOLIC PANEL (CALCIUM TOTAL)(Performed 11/07/2024) * GLUCOSE - POINT OF CARE(Performed 11/06/2024) * TROPONIN-I HIGH SENSITIVE REFLEX 1HOUR(Performed 11/06/2024) * HEMOGLOBIN A1C(Performed 11/06/2024) * MRI BRAIN WO CONTRAST(Performed 11/06/2024) Performed for Left arm weakness * TROPONIN-I HIGH SENSITIVE BASELINE + 1HR(Performed 11/06/2024) * OT EVAL AND TREAT(Performed 11/06/2024) * LACTIC ACID BLOOD(Performed 11/06/2024) * CBC W AUTO DIFFERENTIAL(Performed 11/06/2024) * B-TYPE NATRIURETIC PEPTIDE(Performed 11/06/2024) * EKG 12-LEAD(Performed 11/06/2024) Performed for Dizzy * COMPREHENSIVE METABOLIC PANEL(Performed 11/06/2024) * URINE DRUG SCREEN IMMUNOASSAY(Performed 11/06/2024) * TROPONIN-I HIGH SENSITIVE(Performed 11/06/2024) * CT ANGIO BRAIN AND NECK(Performed 11/06/2024) Performed for Dizzy * CT BRAIN STROKE(Performed 11/06/2024) Performed for Dizzy * INR WHOLE BLOOD - POINT OF CARE (IP) STROKE(Performed 11/06/2024) * CREATININE - POCT INTERFACED(Performed 11/06/2024) * GLUCOSE - POINT OF CARE(Performed 11/06/2024) Results * CARDIAC EKG ORDER (11/13/2024 11:55 AM CLUTCH OPERATOR) Narrative 11/13/2024 11:55 AM CLUTCH OPERATOR Ordered by an unspecified provider. Scanned Document CARDIAC SERVICES ORD ERABLES * (ABNORMAL) GLUCOSE - POINT OF CARE (11/07/2024 11:20 AM CLUTCH OPERATOR) Only the most recent of4 resultswithin the time period is included. [facility] Glucose WB/POC 129(H) 70 - 99 mg/dL 11/07/2024 11:50 AM [facility] Specimen Type Cap Fingerstick 2024 11:50 AM [facility] Blood BLOOD SPECIMEN / Unknown 11/07/2024 11:20 AM CLUTCH OPERATOR 11/07/2024 11:50 AM [facility] Gerard Singletary MD LAB - POINT OF CARE ORDERABLES Performing Organization Address City/State/[facility] Co de Phone Number [facility] [address] [place] [phone], [facility] [phone] * CBC W/O DIFFERENTIAL (11/07/2024 3:25 AM CLUTCH OPERATOR) [facility] WBC 8.3 4.0 - 10.7 x10E9/L 11/07/2024 5:00 AM [facility] RBC Count 4.81 4.30 - 5.80 x10E12/L 11/07/2024 5:00 AM [facility] Hemoglobin 15.0 13.3 - 17.5 g/dL 11/07/2024 5:00 AM [facility] Hematocrit 45.6 38.7 - 51.1 % 11/07/2024 5:00 AM [facility] MCV 94.8 80.0 - 98.0 fL 11/07/2024 5:00 AM [facility] MCH 31.2 26.7 - 33.6 pg 11/07/2024 5:00 AM [facility] MCHC 32.9 31.7 - 36.3 g/dL 11/07/2024 5:00 AM [facility] RDW-CV 13.6 11.3 - 14.8 % 11/07/2024 5:00 AM [facility] Platelet Count 161 150 - 420 x10E9/L 11/07/2024 5:00 AM [facility] MPV 10.6 7.8 - 11.4 fL 11/07/2024 5:00 AM [facility] Blood BLOOD SPECIMEN / Unknown Lab Venipuncture / Unknown 11/07/2024 3:25 AM CLUTCH OPERATOR 11/07/2024 4:53 AM CLUTCH OPERATOR Carlo Thornton MD LAB - HEMATOLOGY ORD ERABLES Performing Organization Address City/[facility]/ZIP Co de Phone Number [facility] [address] [place] [phone], [facility] [phone] * (ABNORMAL) BASIC METABOLIC PANEL (CALCIUM TOTAL) (11/07/2024 3:25 AM CLUTCH OPERATOR) BUN 18 7 - 26 mg/dL 11/07/2024 5:39 AM [facility] Creatinine 1.11 0.71 - 1.16 mg/dL 11/07/2024 5:39 AM [facility] Sodium 140 136 - 145 mmol/L 11/07/2024 5:39 AM [facility] Potassium 4.0 3.5 - 4.5 mmol/L 11/07/2024 5:39 AM [facility] Chloride 108(H) 98 - 107 mmol/L 11/07/2024 5:39 AM [facility] CO2 23 22 - 29 mmol/L 11/07/2024 5:39 AM [facility] Glucose 75 70 - 99 mg/dL 11/07/2024 5:39 AM [facility] Calcium 8.5 8.4 - 10.2 mg/dL 11/07/2024 5:39 AM [facility] Anion Gap 9 6 - 16 11/07/2024 5:39 AM [facility] BUN/Creatinine Ratio 16 7 - 23 11/07/2024 5:39 AM [facility] Osmolality Calculated 291 275 - 295 mOsm/kg 11/07/2024 5:39 AM [facility] eGFR by CKD-EPI 71(L) >=90 mL/min/1.7 3 m2 11/07/2024 5:39 AM [facility] Blood BLOOD SPECIMEN / Unknown Lab Venipuncture / Unknown 11/07/2024 3:25 AM CLUTCH OPERATOR 11/07/2024 4:52 AM CLUTCH OPERATOR Carlo Thornton MD LAB - CHEMISTRY ARETHA GODOY Performing Organization Address City/[facility]/ZIP Co de Phone Number [place] [address] [place] [address], [place] [phone] * (ABNORMAL) LIPID PROFILE (11/07/2024 3:25 AM CLUTCH OPERATOR) Cholesterol Total 110 <200 mg/dL 11/07/2024 5:39 AM [facility] HDL 34(L) >40 mg/dL 11/07/2024 5:39 AM [facility] Comment: ATP III Classification of HDL Cholesterol: <40 mg/dL: Considered a major risk factor. >60 mg/dL: Considered a negative risk factor. LDL Calculated 66 <100 mg/dL 11/07/2024 5:39 AM [facility] Comment: ATP III Classification of LDL Cholesterol: <100 mg/dL: Optimal 100 - 129 mg/dL: Near Optimal/Above Optimal 130 - 159 mg/dL: Borderline High 160 - 189 mg/dL: High >190 mg/dL: Very High Triglycerides 49 <150 mg/dL 11/07/2024 5:39 AM [facility] Comment: ATP III Classification of Triglycerides: <150 mg/dL: Normal 150 - 199 mg/dL: Borderline High 200 - 400 mg/dL: High >500 mg/dL: Very High Blood BLOOD SPECIMEN / Unknown Lab Venipuncture / Unknown 11/07/2024 3:25 AM CLUTCH OPERATOR 11/07/2024 4:52 AM CLUTCH OPERATOR Carlo Thornton MD LAB - CHEMISTRY ARETHA GODOY [facility] [address] [place] [phone], [place] [phone] * (ABNORMAL) TROPONIN-I HIGH SENSITIVE REFLEX 1HOUR (11/06/2024 6:23 PM CLUTCH OPERATOR) Troponin I High Sensitive 57(H) <=35 ng/L 11/06/2024 7:35 PM [facility] Delta Troponin I HS 11/06/2024 7:35 PM [facility] Comment:Delta value intentio karrie not calculated. Baseline to 1 hour specimen collection interval exceeded. Blood BLOOD SPECIMEN / Unknown Lab Venipuncture / Unknown 11/06/2024 6:23 PM CLUTCH OPERATOR 11/06/2024 7:01 PM CLUTCH OPERATOR Carlo Thornton MD LAB - CHEMISTRY ARETHA GODOY Performing Organization Address City/[facility]/ZIP Co de Phone Number [facility] [address] [place] [phone], [place] [phone] * HEMOGLOBIN A1C (11/06/2024 6:23 PM CLUTCH OPERATOR) Hemoglobin A1c 5.1 <=5.6 % 11/07/2024 7:30 AM [facility] Estimated Average Glucose 100 mg/dL 11/07/2024 7:30 AM [facility] Comment: HbA1c Interpretation: Normal : < 5.7% Pre-diabetes: 5.7-6.4% Diabetes: Equal to or greater than 6.5% Test results diagnostic of diabetes should be repeated for confirmation. Treatment target values recommended by ADA and other clinical organizations should be used to evaluate metabolic control in patients. Reference: [place] Diabetes Association, Standards of Care in Diabetes -2020 In patients 70 years and older consider HbA1c target range of 7.0-7.5% (Reference: Meño Piedra, et al. JAMDA. 2012) The Sebia assay for the measurement of HbA1c is a National Glycohemoglobin Standardization Program (NGSP) certified method. Blood BLOOD SPECIMEN / Unknown Lab Venipuncture / Unknown 11/06/2024 6:23 PM CLUTCH OPERATOR 11/06/2024 6:56 PM CLUTCH OPERATOR Carlo Thornton MD LAB - CHEMISTRY ARETHA GODOY [facility] [address] [place] [phone], [place] [phone] * MRI BRAIN WO CONTRAST (11/06/2024 5:29 PM CLUTCH OPERATOR) Anatomical Region Laterality Modality Head Magnetic Resonan ce 11/07/2024 10:5 0 AM CLUTCH OPERATOR Impressions 11/07/2024 10:58 AM CLUTCH OPERATOR IMPRESSION: 1. Small foci of acute infarcts [...] 11/07/2024 10:58 AM Narrative 11/07/2024 10:58 AM CLUTCH OPERATOR PROCEDURE: MRI BRAIN WO CONTRAST, DATE/TIME OF EXAM: 11/06/2024 5:29 PM, LOCATION [facility] INDICATION: R29.898: Left arm weakness ADDITIONAL [...] DATE/TIME OF EXAM: 11/06/2024 5:29 PM, LOCATION [facility] INDICATION: R29.898: Left arm weakness ADDITIONAL [...] SENSITIVE BASELINE + 1HR (11/06/2024 4:41 PM CLUTCH OPERATOR) [facility] Troponin I High Sensitive 63(H) <=35 ng/L 11/06/2024 5:31 PM [facility] Blood BLOOD SPECIMEN / Unknown Venipuncture / Unknown 11/06/2024 4:41 PM CLUTCH OPERATOR 11/06/2024 4:51 PM CLUTCH OPERATOR Carlo Thornton MD LAB - CHEMISTRY ARETHA [facility] Organization Address City/State/ZIP Co de Phone Number [address] [phone] [phone] * (ABNORMAL) CBC W AUTO DIFFERENTIAL (11/06/2024 3:25 PM CLUTCH OPERATOR) [facility] WBC 10.3 4.0 - 10.7 x10E9/L 11/06/2024 3:40 PM [facility] RBC Count 5.01 4.30 - 5.80 x10E12/L 11/06/2024 3:40 PM [facility] Hemoglobin 15.7 13.3 - 17.5 g/dL 11/06/2024 3:40 PM [facility] Hematocrit 46.8 38.7 - 51.1 % 11/06/2024 3:40 PM [facility] MCV 93.4 80.0 - 98.0 fL 11/06/2024 3:40 PM [facility] MCH 31.3 26.7 - 33.6 pg 11/06/2024 3:40 PM [facility] MCHC 33.5 31.7 - 36.3 g/dL 11/06/2024 3:40 PM [facility] RDW-CV 13.7 11.3 - 14.8 % 11/06/2024 3:40 PM [facility] Platelet Count 176 150 - 420 x10E9/L 11/06/2024 3:40 PM [facility] MPV 10.1 7.8 - 11.4 fL 11/06/2024 3:40 PM [facility] Neutrophil % 84.6(H) 41.0 - 74.0 % 11/06/2024 3:40 PM [facility] Lymphocyte % 8.7(L) 17.0 - 47.0 % 11/06/2024 3:40 PM [facility] Monocyte % 5.1 3.0 - 11.0 % 11/06/2024 3:40 PM [facility] Eosinophil % 0.8 0.0 - 7.0 % 11/06/2024 3:40 PM [facility] Basophil % 0.5 0.0 - 1.6 % 11/06/2024 3:40 PM [facility] Immature Granulocytes % 0.3 0.0 - 1.0 % 11/06/2024 3:40 PM [facility] Neutrophil Absolute 8.71(H) 1.60 - 7.50 x10E9/L 11/06/2024 3:40 PM [facility] Lymphocyte Absolute 0.89(L) 1.00 - 4.40 x10E9/L 11/06/2024 3:40 PM [facility] Monocyte Absolute 0.52 0.15 - 1.00 x10E9/L 11/06/2024 3:40 PM [facility] Eosinophil Absolute 0.08 0.00 - 0.60 x10E9/L 11/06/2024 3:40 PM [facility] Basophil Absolute 0.05 0.00 - 0.13 x10E9/L 11/06/2024 3:40 PM [facility] Blood BLOOD SPECIMEN / Unknown Venipuncture / Unknown 11/06/2024 3:25 PM CLUTCH OPERATOR 11/06/2024 3:32 PM [facility] Thomas Castillo MD LAB - HEMATOLOG Y ORDERABLES Performing Organization Address [facility]/ZIP Co de Phone Number [facility] [address] [place] [address], [facility] [phone] * (ABNORMAL) B-TYPE NATRIURETIC PEPTIDE (11/06/2024 3:25 PM CLUTCH OPERATOR) BNP 1,454(H) <100 pg/mL 11/06/2024 4:07 PM CLUTCH OPERATOR [facility] Comment: [...] Unknown Venipuncture / Unknown 11/06/2024 3:25 PM CLUTCH OPERATOR 11/06/2024 3:32 PM CLUTCH OPERATOR Thomas Castillo MD LAB - CHEMISTRY ORDERABLES Performing Organization Address [facility]/ZIP Co de Phone Number [facility] [address] [place] [address], [facility] [phone] * LACTIC ACID BLOOD (11/06/2024 3:25 PM CLUTCH OPERATOR) Lactic Acid-Stat 2.0 <=2.0 mmol/L 11/06/2024 4:03 PM CLUTCH OPERATOR [facility] Blood BLOOD SPECIMEN / Unknown Venipuncture / Unknown 11/06/2024 3:25 PM CLUTCH OPERATOR 11/06/2024 3:32 PM CLUTCH OPERATOR Thomas Castillo MD LAB - CHEMISTRY ORDERABLES [facility] [address] [place] [address], [facility] [phone] * EKG 12-LEAD (11/06/2024 2:50 PM CLUTCH OPERATOR) [facility] Ventricular Rate 70 BPM [facility] MUSE QRS Duration ms 90 ms [facility] MUSE Q-T Interval ms 402 ms [facility] MUSE QTC Calculation (Bezet) 434 ms [facility] MUSE Calculated R Mcewen -20 degrees [facility] MUSE Calculated T Mcewen -63 degrees [facility] MUSE Interpretation EKG ATRIAL FIBRILLATION MODERATE VOLTAGE CRITERIA FOR LVH, MAY BE NORMAL VARIANT ( R in aVL , [place] product ) SEPTAL INFARCT , AGE UNDETERMINED ABNORMAL ECG Confirmed by ELIZABETH RENEE, KAYCEE ([id number]) on 11/09/2024 3:26:16 PM [facility] 11/06/2024 2:50 PM CLUTCH OPERATOR 11/09/2024 3:26 PM CLUTCH OPERATOR Bc Moss MD ECG ORDERABLES Performing Organization Address City/[facility] Co de Phone Number [facility] * (ABNORMAL) TROPONIN-I HIGH SENSITIVE (11/06/2024 2:43 PM CLUTCH OPERATOR) [facility] Troponin I High Sensitive 60(H) <=35 ng/L 11/06/2024 3:23 PM CLUTCH OPERATOR [facility] Blood BLOOD SPECIMEN / Unknown Venipuncture / Unknown 11/06/2024 2:43 PM CLUTCH OPERATOR 11/06/2024 2:48 PM CLUTCH OPERATOR Bc Moss MD LAB - CHEMISTRY ORDE WALT [facility] [address] [place] [address], [place] [phone] * (ABNORMAL) COMPREHENSIVE METABOLIC PANEL (11/06/2024 2:43 PM CLUTCH OPERATOR) [facility] BUN 16 7 - 26 mg/dL 11/06/2024 3:36 PM CLUTCH OPERATOR [facility] Creatinine 1.24(H) 0.71 - 1.16 mg/dL 11/06/2024 3:36 PM [facility] Sodium 139 136 - 145 mmol/L 11/06/2024 3:36 PM [facility] Potassium 4.4 3.5 - 4.5 mmol/L 11/06/2024 3:36 PM [facility] Chloride 107 98 - 107 mmol/L 11/06/2024 3:36 PM [facility] CO2 22 22 - 29 mmol/L 11/06/2024 3:36 PM [facility] Glucose 103(H) 70 - 99 mg/dL 11/06/2024 3:36 PM [facility] Calcium 8.6 8.4 - 10.2 mg/dL 11/06/2024 3:36 PM [facility] Protein Total 6.4 6.0 - 8.3 g/dL 11/06/2024 3:36 PM [facility] Albumin 3.5 3.4 - 5.0 g/dL 11/06/2024 3:36 PM [facility] Bilirubin Total 0.9 0.2 - 1.2 mg/dL 11/06/2024 3:36 PM [facility] Alkaline Phosphatase 55 40 - 150 U/L 11/06/2024 3:36 PM [facility] ALT 13 5 - 55 U/L 11/06/2024 3:36 PM [facility] AST 21 5 - 34 U/L 11/06/2024 3:36 PM [facility] Anion Gap 10 6 - 16 11/06/2024 3:36 PM [facility] BUN/Creatinine Ratio 13 7 - 23 11/06/2024 3:36 PM [facility] Osmolality Calculated 289 275 - 295 mOsm/kg 11/06/2024 3:36 PM [facility] Albumin/Globulin Ratio 1.2 1.1 - 2.3 11/06/2024 3:36 PM [facility] eGFR by CKD-EPI 62(L) >=90 mL/min/1.7 3 m2 11/06/2024 3:36 PM [facility] Blood BLOOD SPECIMEN / Unknown Venipuncture / Unknown 11/06/2024 2:43 PM CLUTCH OPERATOR 11/06/2024 2:48 PM CLUTCH OPERATOR Thomas Castillo MD LAB - CHEMISTRY ORDERABLES [facility] [address] [place] [address], [facility] [phone] * URINE DRUG SCREEN IMMUNOASSAY (11/06/2024 2:43 PM CLUTCH OPERATOR) Pathologist [facility] Amphetamines Screen Urine Negative Negative: < 1000 ng/mL 11/06/2024 3:15 PM [facility] Barbiturates Screen Urine Negative Negative: < 200 ng/mL 11/06/2024 3:15 PM [facility] Benzodiazepine Screen Urine Negative Negative: < 200 ng/mL 11/06/2024 3:15 PM [facility] Opiates Urine Negative Negative: < 300 ng/mL 11/06/2024 3:15 PM [facility] Cocaine Metabolites Urine Negative Negative: < 300 ng/mL 11/06/2024 3:15 PM [facility] Phencyclidine Screen Urine Negative Negative: < 25 ng/ml 11/06/2024 3:15 PM [facility] Cannabinoids Screen Urine Negative Negative: <50 ng/mL 11/06/2024 3:15 PM [facility] Methadone Screen Urine Negative Negative: < 300 ng/mL 11/06/2024 3:15 PM [facility] Fentanyl Screen Urine Negative Negative: <1.5 ng/mL 11/06/2024 3:15 PM [facility] Urine URINE / Unknown Collection / Unknown 11/06/2024 2:43 PM CLUTCH OPERATOR 11/06/2024 2:48 PM CLUTCH OPERATOR Narrative [facility] - 11/06/2024 3:15 PM CLUTCH OPERATOR The Urine Toxicology Screening Panel does not screen for Propoxyphene, Meprobamate, Carisoprodol, Trazodone, tkey-[id number] medications and/or volatiles (Acetone, Isopropanol, Methanol or Ethylene Glycol). Ethanol, Salicylate, Acetaminophen, Tricyclic Antidepressants and several therapeutic drugs may be individually assayed in serum or plasma specimen. Toxicology testing by the Laboratory is an aid to medical diagnosis and treatment of patients. No documented chain of custody was maintained. Results are intended to be used for clinical purposes only. Bc Moss MD LAB - URINE CHEMISTR Y ORDERABLES [facility] [address] [place] [address], [facility] [phone] * CT Brain Stroke (11/06/2024 12:07 PM CLUTCH OPERATOR) Anatomical Region Laterality Modality Head Computed Tomogra phy 11/06/2024 11:5 4 AM CLUTCH OPERATOR Impressions 11/06/2024 11:59 AM CLUTCH OPERATOR IMPRESSION: 1. No acute intracranial hemorrhage. 2. [...] 11/06/2024 11:59 AM Narrative 11/06/2024 11:59 AM CLUTCH OPERATOR PROCEDURE: CT BRAIN STROKE, DATE/TIME OF EXAM: 11/06/2024 11:48 AM, LOCATION [facility] INDICATION: R42: Dizzy ADDITIONAL CLINICAL INFORMATION: [...] DATE/TIME OF EXAM: 11/06/2024 11:48 AM, LOCATION [facility] INDICATION: R42: Dizzy ADDITIONAL CLINICAL INFORMATION: [...] Angio Brain And Neck (11/06/2024 12:07 PM CLUTCH OPERATOR) Anatomical Region Laterality Modality Head Computed Tomogra phy 11/06/2024 12:1 6 PM CLUTCH OPERATOR Impressions 11/06/2024 12:22 PM CLUTCH OPERATOR IMPRESSION: 1. No large arterial occlusions or significant stenoses identified in the head or neck. > Interpreting Provider: Carmelina Marcial MD on 11/06/2024 12:22 PM Narrative 11/06/2024 12:22 PM CLUTCH OPERATOR PROCEDURE: CT ANGIO BRAIN AND NECK, DATE/TIME OF EXAM: 11/06/2024 12:08 PM, LOCATION [facility] INDICATION: R42: Dizzy ADDITIONAL CLINICAL INFORMATION: [...] NECK, DATE/TIME OF EXAM: 11/06/2024 12:08PM, LOCATION [facility] INDICATION: R42: Dizzy ADDITIONAL CLINICAL INFORMATION: [...] OF CARE (IP) STROKE (11/06/2024 11:55 AM CLUTCH OPERATOR) INR 1.0 0.9 - 1.2 11/06/2024 12:15 PM [facility] Device [id number] 11/06/2024 12:15 PM [facility] Guide Excursion ID [id number] 11/06/2024 12:15 PM [facility] Blood BLOOD SPECIMEN / Unknown 11/06/2024 11:55 AM CLUTCH OPERATOR 11/06/2024 12:15 PM CLUTCH OPERATOR Bc Moss MD LAB - POINT OF CARE ORDERABLES [address] [address], [place] [phone] * (ABNORMAL) CREATININE - POCT INTERFACED (11/06/2024 11:48 AM CLUTCH OPERATOR) Creatinine POCT 1.04 0.30 - 1.30 mg/dL 11/06/2024 12:06 PM [facility] eGFR 76(L) >=90 mL/min/1.7 3 m2 11/06/2024 12:06 PM [facility] Blood BLOOD SPECIMEN / Unknown 11/06/2024 11:48 AM CLUTCH OPERATOR 11/06/2024 12:06 PM CLUTCH OPERATOR Bc Moss MD LAB - POINT OF CARE ORDERABLES [address] [address], [place] [phone] Care Teams Ceramics Technician Relationship Specialty Start Date End Date Reymundo Porter DO [address] [place] [address] PCP - General 04/06/21
== END 2024-12-30 09:31 | disposition home or self-care (01) ==
PROVIDERS: PCP Nurse Practitioner Family; Visit Provider Internal Medicine Cardiovascular Disease
DX: I11.0 Hypertensive heart disease with heart failure (principal)
CPT/HCPCS: 78452; 93017; A9502; J2785

== ENCOUNTER 2025-03-01 09:20 | Outpatient (CLI) | payer OTHER, SELFPAY ==
--- NOTE | 2025-03-01 09:39 | ECHO_ITS ---
Patient Info Name: Hernandez Persaud Age: 74 years : 1950 Gender: Male Ht: 65 in Wt: 183 lbs BSA: 1.98 m2 HR: 81 bpm BP: 141 / 88 mmHg Heart Rhythm: Atrial Fibrillation Technical Quality: Fair Exam Date: 03/01/2025 9:44 AM Exam Location: Echo Lab Patient Status: Outpatient Admit Date: 03/01/2025 Staff Ordering Physician: Avila Glover DO Podopediatrician: Cary Cueva RDCS Attending Provider: Avila Glover DO Referring Physician: Adalberto RIZO; Exam Type: CA echo doppler color flow Study Info Indications I51.9 - Heart disease, unspecified Complete two-dimensional, color flow and Doppler transthoracic echocardiogram is performed. Summary 1. Complete two-dimensional, color flow and Doppler transthoracic echocardiogram is performed. 2. Left ventricular chamber dimension is moderately enlarged. 3. Left ventricular systolic function is moderately globally reduced, estimated at 40-45%. 4. There is mild concentric increased left ventricular wall thickness. 5. The left ventricular diastolic function is normal. 6. E/e' 7 is not elevated. 7. Atrial fibrillation. 8. Left atrial chamber dimension is severely enlarged. 9. There is mild aortic valve sclerosis. 10. There is mild aortic valve regurgitation. 11. There is mild to moderate mitral valve regurgitation. 12. There is mild to moderate tricuspid valve regurgitation. 13. Moderate pulmonary hypertension, estimated pulmonary arterial systolic pressure is 52 mmHg. 14. Dilated inferior vena cava with >50% collapse upon inspiration consistent with elevated right atrial pressure, 10 mmHg. Left Ventricle Atrial fibrillation. E/e' 7 is not elevated. Left ventricular chamber dimension is moderately enlarged. Left ventricular systolic function is moderately globally reduced, estimated at 40-45%. There is mild concentric increased left ventricular wall thickness. The left ventricular diastolic function is normal. Right Ventricle Right ventricular chamber dimension is normal. Right ventricular systolic function is normal. Left Atria Left atrial chamber dimension is severely enlarged. Right Atria Right atrial chamber dimension is normal. Aortic Valve The aortic valve is trileaflet. There is mild aortic valve sclerosis. There is no aortic valve stenosis. There is mild aortic valve regurgitation. Pulmonic Valve There is no pulmonic regurgitation. Mitral Valve There is no mitral valve stenosis. There is mild to moderate mitral valve regurgitation. Tricuspid Valve There is mild to moderate tricuspid valve regurgitation. Moderate pulmonary hypertension, estimated pulmonary arterial systolic pressure is 52 mmHg. Pericardium/Pleural There is no pericardial effusion. Inferior Vena Cava Dilated inferior vena cava with >50% collapse upon inspiration consistent with elevated right atrial pressure, 10 mmHg. Aorta The aortic root size at the sinus of Valsalva is normal. Left Ventricular Outflow Tract Name Value Normal LVOT 2D LVOT Diameter 2.0 cm LVOT Doppler LVOT Peak Gradient 2 mmHg LVOT Mean Gradient 1 mmHg LVOT VTI 19 cm LVOT VTI/AV VTI Ratio 0.8 LVOT Stroke Volume 63 ml LVOT CO 4.0 l/min LVOT CI 2.0 l/min/m2 Pulmonic Valve Name Value Normal RVOT Doppler RVOT Peak Gradient 1 mmHg PV Doppler PV Peak Gradient 3 mmHg Mitral Valve Name Value Normal MV Doppler MV Decel [place] 270 cm/s2 MV PHT 71 ms MV Area (PHT) 3.1 cm2 4.0-5.0 MV Diastolic Function MV E Peak Velocity 66 cm/s MV A Peak Velocity 1 cm/s MV E/A 122.1 MV Decel Time 246 ms Tricuspid Valve Name Value Normal TV Regurgitation Doppler TR Peak Velocity 324 cm/s TR Peak Gradient 35 mmHg Estimated PAP/RSVP RA Pressure 10 mmHg <=5 PA Systolic Pressure 52 mmHg <36 RV Systolic Pressure 52 mmHg <36 Aorta Name Value Normal Ascending Aorta Ao Root Diameter (MM) 3.8 cm Ao Root Diam Index (MM) 1.9 cm/m2 Aortic Valve Name Value Normal AV Doppler AV Peak Velocity 126 cm/s AV Peak Gradient 3 mmHg AV Mean Gradient 2 mmHg AV VTI 23 cm AV Area (Cont Eq VTI) 2.7 cm2 >=3.0 AV Area (Cont Eq Adryan) 2.8 cm2 AV Regurgitation 2D LVOT Area 3.2 cm2 AV Regurgitation Doppler AR Decel Time 1,689 ms AR Decel [place] 241 cm/s2 AR PHT 490 ms Ventricles Name Value Normal LV Dimensions 2D/MM IVS Diastolic Thickness (2D) 1.1 cm 0.6-1.0 IVS Diastole Thickness (MM) 1.7 cm 0.6-1.0 LVID Diastole (2D) 5.6 cm 4.2-5.8 LVID Diastole (MM) 7.1 cm 4.2-5.8 LVIW Diastolic Thickness (2D) 1.0 cm 0.6-1.0 LVIW Diastolic Thickness (MM) 1.1 cm 0.6-1.0 LVID Systole (2D) 4.3 cm 2.5-4.0 LVID Systole (MM) 5.7 cm 2.5-4.0 LVOT Diameter 2.0 cm LV Mass (2D Cubed) 240.56 g 88.00-224.00 LV Mass Index (2D Cubed) 122 g/m2 49-115 Relative Wall Thickness (2D) 0.37 LV Mass (MM Cubed) 499.29 g 88.00-224.00 LV Mass Index (MM Cubed) 252 g/m2 49-115 Relative Wall Thickness (MM) 0.30 LV Fractional Shortening/Ejection Fraction 2D/MM LV Fractional Shortening (2D) 24 % 25-43 LV Fractional Shortening (MM) 20 % 25-43 LV EF (MM Teicholz) 39 % 52-72 LV EF (2D Teicholz) 47 % 52-72 LV Diastolic Volume (4C MOD) 97 ml LV EF (4C MOD) 34 % LV Diastolic Volume (2C MOD) 89 ml LV EF (2C MOD) 33 % LV Diastolic Volume (BP MOD) 93 ml 62-150 LV Diastolic Volume Index (BP MOD) 47 ml/m2 34-74 LV Systolic Volume (BP MOD) 65 ml 21-61 LV Systolic Volume Index (BP MOD) 33 ml/m2 11-31 LV EF (BP MOD) 31 % 52-72 LV Diastolic Length (4C) 8.1 cm LV Systolic Length (4C) 7.1 cm LV Stroke Volume (4C MOD) 33 ml Atria Name Value Normal LA Dimensions LA Dimension (MM) 5.9 cm 3.0-4.1 LA Volume (4C A-L) 143 ml LA Volume (BP A-L) 127 ml RA Dimensions RA Area (4C) 19.3 cm2 <=18.0 Report Signatures
--- OUTSIDE RECORDS SUMMARY | 2025-03-01 10:10 | XMS_ITS | Clinical Summary ---
Author Organization [facility] Address [address] [place] [address] Care Team Providers Care Brewery Technician Name Role Phone Reymundo Porter DO Primary Care Provider [phone] Source Comments [facility],non-owned Affiliates and Associated Physician Practices is amultiple site organization consisting of ambulatory clinics and hospital sitesin [place], [place], [place] and [place]. This disclosure is being madepursuant to the Care Everywhere program and may not contain all information available regarding this patient. Last updated 18.[facility] Allergies No known active allergies Medications * Be aware that medications may not be up to date on this document. Alwaysverify current medications with the patient. apixaban (Eliquis) 5 MG tablet Take 1 (one) tablet by mouth 2 times daily for 90 days 60 tablet 2 11/07/2024 Active atorvastatin (Lipitor) 40 MG tablet Take 1 (one) tablet by mouth at bedtime for 90 days 30 tablet 2 11/07/2024 Active Active Problems Problem Noted Date Diagnosed [...] Recorded Patient Health Questionnaire-2 Score 0 11/06/2024 [facility] - Occupational [...] any time in the past [address] [facility], were you homeless or living in a intermediate (including now)? No 11/06/2024 Sex and Gender Information Value Date Recorded Sex Assigned at Not on file Legal Sex Male 10:26 AM CDT Gender Identity Not on file Sexual Orientation Not on file Last Filed Vital Signs Vital Sign Reading Time Taken Comments Blood Pressure 142/73 11/07/2024 11:23 AM [facility] Pulse 80 11/07/2024 11:23 AM [facility] Temperature 36.3 C (97.3 F) 11/07/2024 11:23 AM [facility] Respiratory Rate 18 11/07/2024 11:23 AM [facility] Oxygen Saturation 99% 11/07/2024 11:23 AM [facility] Inhaled Oxygen Concentration - - Weight 79.7 kg (175 lb 9.6 oz) 11/06/2024 7:34 P M [facility] Height 165.1 cm (5' 5 ) 11/06/2024 7:34 PM [facility] Body Mass Index 29.22 11/06/2024 7:34 PM [facility] Plan of Treatment Health Maintenance Due Date Last Done Comments COLOGUARD (AGES 45-75) - COLON CA SCREENING 1950 COLON MONITORING 1950 COLONOSCOPY - COLON CA SCREENING 1950 CT COLONOGRAPHY - COLON CA SCREENING 1950 Colorectal Cancer Screening 1950 FIT - COLON CA SCREENING 1950 FLEX SIG - COLON CA SCREENING 1950 MEDICARE AWV 12 MONTHS 1950 HEPATITIS C SCREENING 04/12/1970 DTAP/TDAP/TD VACCINES (1 - Tdap) 1971 PNEUMOCOCCAL VACCINE 50+ (1 of 1 - PCV) 2002 ZOSTER VACCINE (1 of 2) 2002 Respiratory Syncytial Virus (RSV) Vaccine Pt: or over 60 yrs (1 - Risk 60-74 years 1-dose series) 2012 COVID-19 VACCINE ( season) 2024 11/13/2022, 10/18/2021, 01/23/2021, Additional history exists LIPID TESTING 11/07/2029 11/07/2024 INFLUENZA VACCINE Completed 10/20/2024, 08/11/2021 DEPRESSION SCREENING Completed 11/06/2024 HEPATITIS B VACCINE Aged Out No longe r eligible based on patient's age to complete this topic HIB VACCINE Aged Out No longer eligi ble based on patient's age to complete this topic HPV VACCINE Aged Out No longer eligi ble based on patient's age to complete this topic MENINGOCOCCAL (Group B) VACCINE SHARED DECISION-MAKING Aged Out No longer eligible based on patient's age to complete this topic MENINGOCOCCAL GROUPS A/C/Y/W VACCINE Aged Out No longer eligible based on patient's age to complete this topic Procedures Procedure Name Priority Date/Time Associated Diagnosis Comments LIPID PROFILE Routine 11/07/2024 3:25 AM [facility] from Last 3 Months or Most Recently Relevant to Health Maintenance Results * (ABNORMAL) LIPID PROFILE (11/07/2024 3:25 AM [facility]) Cholesterol Total 110 <200 mg/dL 11/07/2024 5:39 AM [facility] HDL 34(L) >40 mg/dL 11/07/2024 5:39 AM [facility] Comment: ATP III Classification of HDL Cholesterol: <40 mg/dL: Considered a major risk factor. >60 mg/dL: Considered a negative risk factor. LDL Calculated 66 <100 mg/dL 11/07/2024 5:39 AM [facility] Comment: ATP III Classification of LDL Cholesterol: <100 mg/dL: Optimal 100 - 129 mg/dL: Near Optimal/Above Optimal 130 - 159 mg/dL: Borderline High 160 - 189 mg/dL: High >190 mg/dL: Very High Triglycerides 49 <150 mg/dL 11/07/2024 5:39 AM [facility] Comment: ATP III Classification of Triglycerides: <150 mg/dL: Normal 150 - 199 mg/dL: Borderline High 200 - 400 mg/dL: High >500 mg/dL: Very High Blood BLOOD SPECIMEN / Unknown Lab Venipuncture / Unknown 11/07/2024 3:25 AM [facility] 11/07/2024 4:52 AM [facility] Carlo Thornton MD LAB - CHEMISTRY ORDERABLES Fin al Result Performing Organization Address [facility]/State/[facility] de Phone Number [facility] [address] [place] [address], [facility] [phone] from Last 3 Months or Most Recently Relevant to Health Maintenance Insurance MEDICARE [facility] MEDICARE Advance Directives * Full Code (Latest Code Status on File) Date Activated Date Inactivated Comments 11/06/2024 4:32 PM 11/07/2024 3:20 PM Care Teams Brewery Technician Relationship Specialty Start Date End Date Reymundo Porter DO [id number] [id number] PCP - General 04/06/21
== END 2025-03-01 09:21 | disposition home or self-care (01) ==
PROVIDERS: PCP Nurse Practitioner Family; Visit Provider Internal Medicine Cardiovascular Disease
DX: I27.20 Pulmonary hypertension, unspecified (principal); I08.3 Combined rheumatic disorders of mitral, aortic and tricuspid valves
CPT/HCPCS: 93306